=== PATIENT | male | born 1995 | race American Indian/Alaskan Native ===

== ENCOUNTER 2021-04-22 10:36 | Inpatient (IN) | payer SELFPAY ==
[2021-04-22] MEDS ORDERED: SODIUM CHLORIDE 0.9% 1000 ML 1,000 ML IV ONE (11:00)
[2021-04-22 12:04] LABS: Mean Corpuscular HGB Conc 31 % (32-34); Mean Corpuscular Volume 94 fl (84-94); Platelet Count 466 K/mm3 (140-440); Red Cell Distribution Width 14.5 % (13.2-15.2)
[2021-04-22 12:06] LABS: INR 0.93 (0.87-1.13)
[2021-04-22 12:07] LABS: Hematocrit 54.2 % (35.5-45.6); Hemoglobin 16.8 gm/dl (11.8-15.2)
[2021-04-22 12:39] LABS: Alanine Aminotransferase 31 units/L (7-56); Albumin 5.2 g/dL (3.9-5); BUN/Creatinine Ratio 13; Blood Urea Nitrogen 26 mg/dL (9-20); Calcium 10.7 mg/dL (8.4-10.2); Hemolysis Index 14
[2021-04-22] MEDS ORDERED: INSULIN REGULAR, HUMAN 100 UNITS/1 ML IV ONE (13:23)
[2021-04-22] MEDS ORDERED: cefTRIAXone/NS 1 GM/50 ML 1 GM/50 ML BAG IV ONE (13:45)
[2021-04-22] MEDS: POTASSIUM CHLORIDE 10 MEQ 10 MEQ/100 ML BAG IV SCH ×4 (14:05→17:15)
--- NOTE | 2021-04-22 14:22 | Emergency Department Report ---
ED General Adult HPI - General Chief complaint: Hyperglycemia Stated complaint: HYPERGLYCEMIA Time Seen by Provider: 04/22/21 10:45 Source: patient Mode of arrival: Ambulatory Limitations: No Limitations - History of Present Illness Initial comments: /o weakness since this morning. took 10units insulin prior to EMS arrival. Repeat BGL 536. -: Gradual, days(s) Radiation: non-radiation Consistency: intermittent Improves with: none - Related Data Allergies Allergy/AdvReac Type Severity Reaction Status Date / Time No Known Allergies Allergy Verified 04/22/21 11:00 ED Review of Systems ROS: Stated complaint: HYPERGLYCEMIA Other details as noted in HPI Constitutional: denies: chills, fever Eyes: denies: eye pain, eye discharge, vision change ENT: denies: ear pain, throat pain Respiratory: denies: cough, shortness of breath, wheezing Cardiovascular: denies: chest pain, palpitations Endocrine: no symptoms reported Gastrointestinal: denies: abdominal pain, nausea, diarrhea Genitourinary: denies: urgency, dysuria Musculoskeletal: denies: back pain, joint swelling, arthralgia Skin: denies: rash, lesions Neurological: denies: headache, weakness, paresthesias Psychiatric: denies: anxiety, depression Hematological/Lymphatic: denies: easy bleeding, easy bruising ED Past Medical Hx - Past Medical History Previous Medical History?: No ED Physical Exam - General Limitations: No Limitations General appearance: lethargic, in distress - Head Head exam: Present: atraumatic, normocephalic - Eye Eye exam: Present: normal appearance - ENT ENT exam: Present: mucous membranes dry - Neck Neck exam: Present: normal inspection - Respiratory Respiratory exam: Present: normal lung sounds bilaterally. Absent: respiratory distress - Cardiovascular Cardiovascular Exam: Present: regular rate, tachycardia. Absent: systolic murmur, diastolic murmur, rubs, gallop - GI/Abdominal GI/Abdominal exam: Present: soft, normal bowel sounds - Rectal Rectal exam: Present: deferred - Extremities Exam Extremities exam: Present: normal inspection - Back Exam Back exam: Present: normal inspection - Neurological Exam Neurological exam: Present: alert, oriented X3 - Psychiatric Psychiatric exam: Present: normal affect, normal mood - Skin Skin exam: Present: warm, dry, intact, normal color. Absent: rash ED Course Vital Signs 04/22/21 10:58 Temperature 98 F Pulse Rate 81 Respiratory 16 Rate Blood Pressure 140/98 [Left] O2 Sat by Pulse 98 Oximetry - Reevaluation(s) Reevaluation #1: 04/22/21 14:20 DKA work up , acidotic, insulin bolus and drip, fluids given ED Medical Decision Making - Lab Data Result diagrams: 04/22/21 11:26 04/22/21 11:26 Critical Care Time: Yes Critical care time in (mins) excluding proc time.: 65 Critical care attestation.: If time is entered above; I have spent that time in minutes in the direct care of this critically ill patient, excluding procedure time. ED Disposition Clinical Impression: DKA (diabetic ketoacidosis), Acidosis Disposition: ADMITTED INPATIENT Is pt being admited?: Yes Does the pt Need Aspirin: No Condition: Critical Instructions: Diabetic Ketoacidosis (ED) Referrals: PRIMARY CARE, [Primary Care Provider] - 3-5 Days
[2021-04-22 14:28] LABS: Calcium 9.8 mg/dL (8.4-10.2)
[2021-04-22] MEDS: INSULIN REGULAR, HUMAN 100 UNITS in SODIUM CHLORIDE 0.9% 99 ML IV SCH (14:54)
[2021-04-22] MEDS ORDERED: DEXTROSE 50% IN WATER (25GM) 50 ML SYRINGE IV PRN (15:13)
[2021-04-22] MEDS ORDERED: INSULIN REGULAR, HUMAN 100 UNITS in SODIUM CHLORIDE 0.9% 99 ML IV SCH (16:00)
[2021-04-22] MEDS ORDERED: D5W/0.45% NACL/KCL 20 MEQ 20 MEQ/1,000 ML BAG IV SCH (16:00)
[2021-04-22] MEDS ORDERED: ACETAMINOPHEN 325 MG TAB PO PRN (16:00)
[2021-04-22] MEDS ORDERED: ONDANSETRON 4 MG/2 ML INJ IV PRN (16:00)
[2021-04-22] MEDS ORDERED: METOCLOPRAMIDE 10 MG/2 ML INJ IV PRN (16:00)
[2021-04-22] MEDS ORDERED: MORPHINE 2 MG/1 ML INJ IV PRN (16:00)
--- NOTE | 2021-04-22 16:17 | History and Physical Report ---
History of Present Illness Date of examination: 04/22/21 Date of admission: 04/22/21 Chief complaint: Altered sensorium History of present illness: 25-year-old male comes in for severe weakness and high blood glucose levels. Complains of weakness since this morning. Not been taking his insulin properly. Took 10 units of insulin prior to EMS. Blood glucose level by EMS was 536. Patient has also nausea. No vomiting. Altered sensorium. No fever or chills. Patient is on insulin for the last 10 years. Very noncompliant. This is the first admission to this hospital. No previous admissions. Patient lying in bed lethargic. Sometimes agitated. Very dry tongue. Review of Systems ROS: Stated complaint: HYPERGLYCEMIA Other details as noted in HPI Constitutional: denies: chills, fever Eyes: denies: eye pain, eye discharge, vision change ENT: denies: ear pain, throat pain Respiratory: denies: cough, shortness of breath, wheezing Cardiovascular: denies: chest pain, palpitations Endocrine: no symptoms reported Gastrointestinal: denies: abdominal pain, nausea, diarrhea Genitourinary: denies: urgency, dysuria Musculoskeletal: denies: back pain, joint swelling, arthralgia Skin: denies: rash, lesions Neurological: denies: headache, weakness, paresthesias Psychiatric: denies: anxiety, depression Hematological/Lymphatic: denies: easy bleeding, easy bruising Past History Past Medical History: diabetes (IDDM) Past Surgical History: No surgical history Social history: smoking, full code Family history: diabetes, hypertension Medications and Allergies Allergies Allergy/AdvReac Type Severity Reaction Status Date / Time No Known Allergies Allergy Verified 04/22/21 11:00 Active Meds: Active Medications Insulin Human Regular 100 (units/ Sodium Chloride) 100 mls @ 1 mls/hr IV TITR HAMIDA; Protocol Potassium Chloride (Kcl 10meq/100ml) 10 meq in 100 mls @ 100 mls/hr IV Q1H HAMIDA Stop: 04/22/21 17:59 Exam - Constitutional Vitals: Temp Pulse Resp BP Pulse Ox 98 F 81 16 140/98 98 04/22/21 10:58 04/22/21 10:58 04/22/21 10:58 04/22/21 10:58 04/22/21 10:58 General appearance: Present: no acute distress, well-nourished - EENT Eyes: Present: PERRL ENT: hearing intact, clear oral mucosa, other (Mucosal membranes are dry especially tongue) - Neck Neck: Present: supple, normal ROM - Respiratory Respiratory effort: normal Respiratory: bilateral: CTA - Cardiovascular Heart rate: 78 Rhythm: regular Heart Sounds: Present: S1 & S2. Absent: rub, click - Extremities Extremities: pulses symmetrical, No edema Peripheral Pulses: within normal limits - Abdominal General gastrointestinal: Present: soft, non-tender, non-distended, normal bowel sounds Male genitourinary: Present: normal - Integumentary Integumentary: Present: clear, warm, dry - Musculoskeletal Musculoskeletal: strength equal bilaterally, generalized weakness - Psychiatric Psychiatric: agitated, other (Lethargic) - Neurologic Neurologic: CNII-XII intact, moves all extremities, other (Lethargic) - Allied Health Allied health notes reviewed: nursing, case management HEART Score - HEART Score Troponin: Troponin T < 0.010 ng/mL (0.00-0.029) 04/22/21 11:26 Results - Labs CBC & Chem 7: 04/22/21 11:26 04/22/21 Unknown Labs: Laboratory Last Values WBC 26.5 K/mm3 (4.5-11.0) H 04/22/21 11:26 RBC 5.80 M/mm3 (3.65-5.03) H 04/22/21 11:26 Hgb 16.8 gm/dl (11.8-15.2) H 04/22/21 11:26 Hct 54.2 % (35.5-45.6) H 04/22/21 11:26 MCV 94 fl (84-94) 04/22/21 11:26 MCH 29 pg (28-32) 04/22/21 11:26 MCHC 31 % (32-34) L 04/22/21 11:26 RDW 14.5 % (13.2-15.2) 04/22/21 11:26 Plt Count 466 K/mm3 (140-440) H 04/22/21 11:26 PT 13.5 Sec. (12.2-14.9) 04/22/21 11:26 INR 0.93 (0.87-1.13) 04/22/21 11:26 Sodium 132 mmol/L (137-145) L 04/22/21 13:44 Potassium 5.4 mmol/L (3.6-5.0) H 04/22/21 13:44 Chloride 79.7 mmol/L (98-107) L 04/22/21 13:44 Carbon Dioxide 5 mmol/L (22-30) L* 04/22/21 13:44 Anion Gap 53 mmol/L 04/22/21 13:44 BUN 30 mg/dL (9-20) H 04/22/21 13:44 Creatinine 2.0 mg/dL (0.8-1.3) H 04/22/21 13:44 Estimated GFR 49 ml/min 04/22/21 13:44 BUN/Creatinine Ratio 15 % 04/22/21 13:44 Glucose 868 mg/dL (75-100) H* 04/22/21 13:44 Lactic Acid 6.00 mmol/L (0.7-2.0) H* 04/22/21 12:50 Calcium 9.8 mg/dL (8.4-10.2) 04/22/21 13:44 Total Bilirubin 0.40 mg/dL (0.1-1.2) 04/22/21 11:26 AST 40 units/L (5-40) 04/22/21 11:26 ALT 31 units/L (7-56) 04/22/21 11:26 Alkaline Phosphatase 126 units/L (35-129) 04/22/21 11:26 Total Creatine Kinase 117 units/L (55-170) 04/22/21 11:26 Troponin T < 0.010 ng/mL (0.00-0.029) 04/22/21 11:26 Total Protein 9.0 g/dL (6.3-8.2) H 04/22/21 11:26 Albumin 5.2 g/dL (3.9-5) H 04/22/21 11:26 Albumin/Globulin Ratio 1.4 % 04/22/21 11:26 Salicylates < 0.3 mg/dL (2.8-20.0) L 04/22/21 11:26 Acetaminophen 5.0 ug/mL (10.0-30.0) L 04/22/21 11:26 Plasma/Serum Alcohol < 0.01 % (0-0.07) 04/22/21 11:26 Short CBC 04/22/21 Range/Units 11:26 WBC 26.5 H (4.5-11.0) K/mm3 Hgb 16.8 H (11.8-15.2) gm/dl Hct 54.2 H (35.5-45.6) % Plt Count 466 H (140-440) K/mm3 BMP 04/22/21 04/22/21 04/22/21 11:26 13:44 16:15 Sodium 131 L 132 L 136 L Potassium 4.8 5.4 H 4.9 Chloride 79.7 L 79.7 L 89.1 L Carbon Dioxide 7 L* 5 L* 5 L* BUN 26 H 30 H 32 H Creatinine 2.0 H 2.0 H 2.1 H Glucose 768 H* 868 H* 802 H* Calcium 10.7 H 9.8 9.0 04/22/21 04/22/21 04/23/21 23:28 Unknown 06:00 Sodium 144 D 136 L 147 H Potassium 5.0 5.3 H 4.5 Chloride 110.6 H 95.9 L 113.8 H Carbon Dioxide 12 L 9 L* 19 L D BUN 31 H 35 H 25 H Creatinine 1.5 H 2.1 H 1.2 Glucose 310 H 574 H* 186 H Calcium 9.0 9.6 8.9 Cardiac Enzymes 04/22/21 Range/Units 11:26 Total Creatine Kinase 117 (55-170) units/L Troponin T < 0.010 (0.00-0.029) ng/mL Liver Function 04/22/21 Range/Units 11:26 Total Bilirubin 0.40 (0.1-1.2) mg/dL AST 40 (5-40) units/L ALT 31 (7-56) units/L Alkaline Phosphatase 126 (35-129) units/L Albumin 5.2 H (3.9-5) g/dL Urine 04/22/21 Range/Units Unknown Urine Color Yellow (Yellow) Urine pH 5.0 (5.0-7.0) Ur Specific [place] 1.010 (1.003-1.030) Urine Protein 30 mg/dl (Negative) mg/dL Urine Glucose (UA) 500 (Negative) mg/dL Assessment and Plan Assessment and plan: Critical care statement The high probability OF a clinically significant sudden or life-threatening deterioration of the cardiorespiratory system and endocrine system required my f ull and direct attention, intervention and postoperative management. The aggregate critical care time was 40 minutes. The time is in addition to time spent performing reported procedures but includes the followin: Data review and interpretation 2: Patient assessment and monitoring of vital signs 3: Documentation 4:: Medication orders and management Advance Directives: Yes (Full code) VTE prophylaxis?: Chemical Plan of care discussed with patient/family: Yes - Patient Problems (1) Acute metabolic encephalopathy Current Visit: Yes Status: Acute Plan to address problem: Patient is after sensorium secondary to his metabolic abnormalities Also possible sepsis versus demargination Patient started on DKA protocol Patient started on IV Rocephin IV fluids (2) DKA (diabetic ketoacidosis) Current Visit: Yes Status: Acute Qualifiers: Diabetes mellitus type: type 1 Plan to address problem: DKA protocol initiated. IV insulin. IV fluids. IV bicarbonate given. Patient also started on long-acting insulin Diabetes education. (3) Metabolic acidosis Current Visit: Yes Status: Acute Plan to address problem: IV sodium bicarbonate as required (4) Polycythemia due to fall in plasma volume Current Visit: Yes Status: Acute Plan to address problem: IV fluids for now (5) OXANA (acute kidney injury) Current Visit: Yes Status: Acute Plan to address problem: Secondary to vasomotor nephropathy IV fluids for now Nephrology consult if necessary (6) Leukocytosis Current Visit: Yes Status: Acute Plan to address problem: No source of infection identified No urinary tract infection Empiric IV antibiotics High white count possible secondary to demargination (7) Hyponatremia Current Visit: Yes Status: Acute Plan to address problem: Secondary to high blood glucose levels Should correct with correction of blood glucose levels (8) DVT prophylaxis Current Visit: Yes Status: Acute Plan to address problem: On heparin and GI prophylaxis (9) Advance care planning Current Visit: Yes Status: Acute Plan to address problem: Could not be done because of the patient's condition
[2021-04-22 18:12] LABS: Band Neutrophils # (Manual) 1.1 K/mm3; Basophils % (Manual) 0 % (0.0-1.8); Platelet Estimate Consistent w Auto; RBC Morphology Normal; Total Cells Counted 100
[2021-04-22] MEDS ORDERED: LORazepam 2 MG/ML VIAL ONE (18:37)
[2021-04-22] MEDS: LORazepam 2 MG/ML VIAL IV PRN ×2 (18:45→22:04)
[2021-04-22 21:05] LABS: Calcium 9.6 mg/dL (8.4-10.2)
[2021-04-22] MEDS: HEPARIN 5,000 UNIT/1 ML VIAL SUB-Q SCH (22:07)
[2021-04-22 22:11] LABS: Amphetamine Screen,Urine Negative; Benzodiazepines Screen,Urine Negative; Cocaine Screen,Urine Negative; Methadone Screen,Urine Negative; Opiate Screen,Urine Negative
[2021-04-22 22:28] LABS: Bacteria,Urine 1+ /HPF (Negative); Mucus,Urine FEW /HPF
[2021-04-22 22:30] LABS: Color,Urine Yellow (Yellow)
[2021-04-22 22:31] LABS: Bilirubin,Urine Negative (Negative)
[2021-04-22 22:32] LABS: Blood,Urine Small (Negative); Urobilinogen,Urine < 2.0 mg/dL (<2.0)
[2021-04-22 22:38] LABS: Cannabinoid Screen,Urine PRESUMPTIVE POSITIVE
[2021-04-23 00:25] LABS: BUN/Creatinine Ratio 21; Blood Urea Nitrogen 31 mg/dL (9-20); Hemolysis Index 9
[2021-04-23] MEDS: LORazepam 2 MG/ML VIAL IV PRN (02:36)
[2021-04-23] MEDS: D5W/0.45% NACL 1,000 ML IV SCH ×2 (03:35→12:49)
[2021-04-23 06:06] LABS: BUN/Creatinine Ratio 21; Blood Urea Nitrogen 25 mg/dL (9-20); Calcium 8.9 mg/dL (8.4-10.2); Hemolysis Index 11
[2021-04-23] MEDS: INSULIN REGULAR, HUMAN 100 UNITS in SODIUM CHLORIDE 0.9% 99 ML IV SCH (06:31)
[2021-04-23] MEDS ORDERED: INSULIN REGULAR, HUMAN 100 UNITS in SODIUM CHLORIDE 0.9% 99 ML IV SCH (07:00)
[2021-04-23] MEDS ORDERED: INSULIN GLARGINE 100 UNITS/ML SUB-Q SCH ×2 (08:00→22:00)
[2021-04-23] MEDS: cefTRIAXone/NS 2 GM/100 ML 2 GM/100 ML BAG IV SCH ×3 (09:30→11:06)
[2021-04-23] MEDS: HEPARIN 5,000 UNIT/1 ML VIAL SUB-Q SCH (09:42)
--- NOTE | 2021-04-23 09:58 | Electrocardiograph Report ---
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
--- NOTE | 2021-04-23 11:05 | Progress Note ---
Assessment and Plan Assessment and plan: Assessment and Plan: #Diabetic ketoacidosis - A.5, BG 536 on admission, ketonuria - DKA protocol initiated: IV insulin (do not d/c until gap closed) + IVF - IV bicarbonate given. - Accuchekcs q1hr - BMP q4hr - monitor for gap closure, initiate lantus once closed. - CCM consulted on admission #Acute metabolic encephalopathy - likely DKA related - alert but confused - currently in restraints #Metabolic acidosis - 2/2 DKA #Acute kidney injury due to vasomotor nephropathy - Dehydration related - IVF as above # Type 2 Diabetic Mellitus with hyperglycemia - A1c > 17. - treatment as above - will need diabetic education on discharge #SIRS - tachycardic, elevated wbc 26K on admission, elevated LA - likely dka related - need additional volume and correction of DKA - no obvious source of infectious etiology...d/c rocephin #hyponatremia - pseudo #THC use - UDS positive #Advance care planning Disease education conducted, care plan discussed, diagnoses discussed, prognosis discussed, patient is full code, patient acknowledges understanding and agree with care plan, +30 minutes. The high probability of a clinically significant, sudden or life threatening deterioration of the [endo, renal] system(s) required my full and direct attention, intervention and personal management. The aggregate critical care time was [60] minutes. This time is in addition to time spent performing reported procedures but includes the following: [x] Data Review and interpretation [x] Patient assessment and monitoring of vital signs [x] Documentation [x] Medication orders and management History Interval history: confused on my encounter. Hospitalist Physical - Physical exam Narrative exam: Physical Exam: VITAL SIGNS: Reviewed. GENERAL: The patient appears normally developed, Vital signs as documented. confused on encounter. HEAD: No signs of head trauma. EYES: Pupils are equal. Extraocular motions intact. EARS: Hearing grossly intact. MOUTH: Oropharynx is normal. NECK: No adenopathy, no JVD. CHEST: Chest with clear breath sounds bilaterally. No wheezes, rales, or rhonchi. CARDIAC: sinus tachycardia. S1 and S2, without murmurs, gallops, or rubs. VASCULAR: No Edema. Peripheral pulses normal and equal in all extremities. ABDOMEN: Soft, non tender and non distended. No rebound or guarding, and no masses palpated. Bowel Sounds normal. MUSCULOSKELETAL: Good range of motion of all major joints. Extremities without clubbing, cyanosis or edema. NEUROLOGIC EXAM: confused. PSYCHIATRIC: confused SKIN: detail exam as documented in skin assessment - Constitutional Vitals: Temp Pulse Resp BP Pulse Ox 98.2 F 130 H 15 120/77 99 04/23/21 06:44 04/23/21 06:31 04/23/21 06:31 04/23/21 06:31 04/23/21 06:31 General appearance: Present: no acute distress, well-nourished HEART Score - HEART Score Troponin: Troponin T < 0.010 ng/mL (0.00-0.029) 04/22/21 11:26 Results - Labs CBC & Chem 7: 04/22/21 11:26 04/23/21 06:00 Labs: Laboratory Last Values WBC 26.5 K/mm3 (4.5-11.0) H 04/22/21 11:26 RBC 5.80 M/mm3 (3.65-5.03) H 04/22/21 11:26 Hgb 16.8 gm/dl (11.8-15.2) H 04/22/21 11:26 Hct 54.2 % (35.5-45.6) H 04/22/21 11:26 MCV 94 fl (84-94) 04/22/21 11:26 MCH 29 pg (28-32) 04/22/21 11:26 MCHC 31 % (32-34) L 04/22/21 11:26 RDW 14.5 % (13.2-15.2) 04/22/21 11:26 Plt Count 466 K/mm3 (140-440) H 04/22/21 11:26 Add Manual Diff Complete 04/22/21 11:26 Total Counted 100 04/22/21 11:26 Seg Neuts % (Manual) 88.0 % (40.0-70.0) H 04/22/21 11:26 Band Neutrophils % 4.0 % 04/22/21 11:26 Lymphocytes % (Manual) 2.0 % (13.4-35.0) L 04/22/21 11:26 Reactive Lymphs % (Man) 0 % 04/22/21 11:26 Monocytes % (Manual) 5.0 % (0.0-7.3) 04/22/21 11:26 Eosinophils % (Manual) 1.0 % (0.0-4.3) 04/22/21 11:26 Basophils % (Manual) 0 % (0.0-1.8) 04/22/21 11:26 Metamyelocytes % 0 % 04/22/21 11:26 Myelocytes % 0 % 04/22/21 11:26 Promyelocytes % 0 % 04/22/21 11:26 Blast Cells % 0 % 04/22/21 11:26 Nucleated RBC % Not Reportable 04/22/21 11:26 Seg Neutrophils # Man 23.3 K/mm3 (1.8-7.7) H 04/22/21 11:26 Band Neutrophils # 1.1 K/mm3 04/22/21 11:26 Lymphocytes # (Manual) 0.5 K/mm3 (1.2-5.4) L 04/22/21 11:26 Abs React Lymphs (Man) 0.0 K/mm3 04/22/21 11:26 Monocytes # (Manual) 1.3 K/mm3 (0.0-0.8) H 04/22/21 11:26 Eosinophils # (Manual) 0.3 K/mm3 (0.0-0.4) 04/22/21 11:26 Basophils # (Manual) 0.0 K/mm3 (0.0-0.1) 04/22/21 11:26 Metamyelocytes # 0.0 K/mm3 04/22/21 11:26 Myelocytes # 0.0 K/mm3 04/22/21 11:26 Promyelocytes # 0.0 K/mm3 04/22/21 11:26 Blast Cells # 0.0 K/mm3 04/22/21 11:26 WBC Morphology Not Reportable 04/22/21 11:26 Hypersegmented Neuts Not Reportable 04/22/21 11:26 Hyposegmented Neuts Not Reportable 04/22/21 11:26 Hypogranular Neuts Not Reportable 04/22/21 11:26 Smudge Cells Not Reportable 04/22/21 11:26 Toxic Granulation Not Reportable 04/22/21 11:26 Toxic Vacuolation Not Reportable 04/22/21 11:26 Dohle Bodies Not Reportable 04/22/21 11:26 Pelger-Huet Anomaly Not Reportable 04/22/21 11:26 [place] Rods Not Reportable 04/22/21 11:26 Platelet Estimate Consistent w auto 04/22/21 11:26 Clumped Platelets Not Reportable 04/22/21 11:26 Plt Clumps, EDTA Not Reportable 04/22/21 11:26 Large Platelets Not Reportable 04/22/21 11:26 Giant Platelets Not Reportable 04/22/21 11:26 Platelet Satelliting Not Reportable 04/22/21 11:26 Plt Morphology Comment Not Reportable 04/22/21 11:26 RBC Morphology Normal 04/22/21 11:26 Dimorphic RBCs Not Reportable 04/22/21 11:26 Polychromasia Not Reportable 04/22/21 11:26 Hypochromasia Not Reportable 04/22/21 11:26 Poikilocytosis Not Reportable 04/22/21 11:26 Anisocytosis Not Reportable 04/22/21 11:26 Microcytosis Not Reportable 04/22/21 11:26 Macrocytosis Not Reportable 04/22/21 11:26 Spherocytes Not Reportable 04/22/21 11:26 Pappenheimer Bodies Not Reportable 04/22/21 11:26 Sickle Cells Not Reportable 04/22/21 11:26 Target Cells Not Reportable 04/22/21 11:26 Tear Drop Cells Not Reportable 04/22/21 11:26 Ovalocytes Not Reportable 04/22/21 11:26 Helmet Cells Not Reportable 04/22/21 11:26 [place] Bodies Not Reportable 04/22/21 11:26 [place] Rings Not Reportable 04/22/21 11:26 [place] Cells Not Reportable 04/22/21 11:26 Bite Cells Not Reportable 04/22/21 11:26 Crenated Cell Not Reportable 04/22/21 11:26 Elliptocytes Not Reportable 04/22/21 11:26 Acanthocytes (Spur) Not Reportable 04/22/21 11:26 Rouleaux Not Reportable 04/22/21 11:26 Hemoglobin C Crystals Not Reportable 04/22/21 11:26 Schistocytes Not Reportable 04/22/21 11:26 Malaria parasites Not Reportable 04/22/21 11:26 Feroz Bodies Not Reportable 04/22/21 11:26 Hem Pathologist Commnt No 04/22/21 11:26 PT 13.5 Sec. (12.2-14.9) 04/22/21 11:26 INR 0.93 (0.87-1.13) 04/22/21 11:26 Sodium 147 mmol/L (137-145) H 04/23/21 06:00 Potassium 4.5 mmol/L (3.6-5.0) 04/23/21 06:00 Chloride 113.8 mmol/L (98-107) H 04/23/21 06:00 Carbon Dioxide 19 mmol/L (22-30) L D 04/23/21 06:00 Anion Gap 19 mmol/L 04/23/21 06:00 BUN 25 mg/dL (9-20) H 04/23/21 06:00 Creatinine 1.2 mg/dL (0.8-1.3) 04/23/21 06:00 Estimated GFR > 60 ml/min 04/23/21 06:00 BUN/Creatinine Ratio 21 % 04/23/21 06:00 Glucose 186 mg/dL (75-100) H 04/23/21 06:00 POC Glucose 164 mg/dL (70-105) H 04/23/21 10:32 Hemoglobin A1c > 17.0 % (4-6) H 04/23/21 05:23 Lactic Acid 6.40 mmol/L (0.7-2.0) H* 04/22/21 13:52 Calcium 8.9 mg/dL (8.4-10.2) 04/23/21 06:00 Phosphorus 8.80 mg/dL (2.5-4.5) H 04/22/21 16:15 Magnesium 2.70 mg/dL (1.7-2.3) H 04/22/21 16:15 Total Bilirubin 0.40 mg/dL (0.1-1.2) 04/22/21 11:26 AST 40 units/L (5-40) 04/22/21 11:26 ALT 31 units/L (7-56) 04/22/21 11:26 Alkaline Phosphatase 126 units/L (35-129) 04/22/21 11:26 Total Creatine Kinase 117 units/L (55-170) 04/22/21 11:26 Troponin T < 0.010 ng/mL (0.00-0.029) 04/22/21 11:26 Total Protein 9.0 g/dL (6.3-8.2) H 04/22/21 11:26 Albumin 5.2 g/dL (3.9-5) H 04/22/21 11:26 Albumin/Globulin Ratio 1.4 % 04/22/21 11:26 Urine Color Yellow (Yellow) 04/22/21 Unknown Urine Turbidity Clear (Clear) 04/22/21 Unknown Urine pH 5.0 (5.0-7.0) 04/22/21 Unknown Ur Specific [place] 1.010 (1.003-1.030) 04/22/21 Unknown Urine Protein 30 mg/dl mg/dL (Negative) 04/22/21 Unknown Urine Glucose (UA) 500 mg/dL (Negative) 04/22/21 Unknown Urine Ketones 25 mg/dL (Negative) 04/22/21 Unknown Urine Blood Small (Negative) A 04/22/21 Unknown Urine Nitrite Negative (Negative) 04/22/21 Unknown Ur Reducing Substances Not Reportable 04/22/21 Unknown Urine Bilirubin Negative (Negative) 04/22/21 Unknown Urine Ictotest Not Reportable 04/22/21 Unknown Urine Urobilinogen < 2.0 mg/dL (<2.0) 04/22/21 Unknown Ur Leukocyte Esterase Negative (Negative) 04/22/21 Unknown Urine WBC (Auto) 4.0 /HPF (0.0-6.0) 04/22/21 Unknown Urine RBC (Auto) 1.0 /HPF (0.0-6.0) 04/22/21 Unknown U Epithel Cells (Auto) 1.0 /HPF (0-13.0) 04/22/21 Unknown Urine Bacteria (Auto) 1+ /HPF (Negative) 04/22/21 Unknown Urine Mucus Few /HPF 04/22/21 Unknown Salicylates < 0.3 mg/dL (2.8-20.0) L 04/22/21 11:26 Urine Opiates Screen Negative 04/22/21 Unknown Urine Methadone Screen Negative 04/22/21 Unknown Acetaminophen 5.0 ug/mL (10.0-30.0) L 04/22/21 11:26 Ur Barbiturates Screen Negative 04/22/21 Unknown Ur Phencyclidine Scrn Negative 04/22/21 Unknown Ur Amphetamines Screen Negative 04/22/21 Unknown U Benzodiazepines Scrn Negative 04/22/21 Unknown Urine Cocaine Screen Negative 04/22/21 Unknown U Marijuana (THC) Screen Presumptive positive 04/22/21 Unknown Drugs of Abuse Note Disclamer 04/22/21 Unknown Plasma/Serum Alcohol < 0.01 % (0-0.07) 04/22/21 11:26 Active Medications - Current Medications Current Medications: Generic Name Dose Route Start Last Admin Trade Name Freq PRN Reason Stop Dose Admin Acetaminophen 650 mg 04/22/21 16:00 Acetaminophen 325 Mg Tab PO Q4H PRN Pain MILD(1-3)/Fever >100.5/IVAN Dextrose 0 ml 04/22/21 17:22 Dextrose 10% *Hypoglycemia IV PRN PRN Hypoglycemia Heparin Sodium (Porcine) 5,000 unit 04/22/21 22:00 04/23/21 09:42 Heparin 5,000 Unit/1 Ml Vial SUB-Q 5,000 unit Q12HR HAMIDA Administration Dextrose/Sodium Chloride 1,000 mls @ 125 mls/hr 04/23/21 04:00 04/23/21 03:35 D5/0.45ns IV 125 mls/hr DIRECT HAMIDA Administration Ceftriaxone Sodium 2 gm in 100 mls @ 200 mls/hr 04/23/21 06:30 Rocephin/Ns 2 Gm/100 Ml IV Q24HR HAMIDA Protocol Insulin Human Regular 100 100 mls @ 1 mls/hr 04/23/21 07:00 04/23/21 09:11 units/ Sodium Chloride IV 4 units/hr TITR HAMIDA 4 mls/hr Administration Protocol 1 UNITS/HR Lorazepam 1 mg 04/22/21 18:48 04/23/21 02:36 Lorazepam 2 Mg/Ml Vial IV 1 mg Q3H PRN Administration Agitation Metoclopramide HCl 10 mg 04/22/21 16:00 Metoclopramide 10 Mg/2 Ml Inj IV Q6H PRN Nausea And Vomiting Morphine Sulfate 2 mg 04/22/21 16:00 Morphine 2 Mg/1 Ml Inj IV Q4H PRN Pain, Moderate (4-6) Ondansetron HCl 4 mg 04/22/21 16:00 Ondansetron 4 Mg/2 Ml Inj IV Q3H PRN Nausea And Vomiting Sodium Chloride 10 ml 04/22/21 22:00 02/09/22 09:43 Sodium Chloride 0.9% 10 Ml Flush Syringe IV 10 ml BID HAMIDA Administration Sodium Chloride 10 ml 04/22/21 15:30 Sodium Chloride 0.9% 10 Ml Flush Syringe IV 05/02/21 15:29 PRN PRN LINE FLUSH
[2021-04-23 16:11] LABS: BUN/Creatinine Ratio 17; Blood Urea Nitrogen 20 mg/dL (9-20); Calcium 9.2 mg/dL (8.4-10.2); Hemolysis Index 11
[2021-04-23] MEDS ORDERED: DEXTROSE 50% IN WATER (25GM) 50 ML SYRINGE IV PRN (16:52)
[2021-04-23] MEDS: INSULIN LISPRO 100 UNIT/ML SUB-Q SCH (18:10)
[2021-04-23] MEDS ORDERED: INSULIN REGULAR, HUMAN 100 UNITS/1 ML SUB-Q SCH (22:00)
[2021-04-24] MEDS: INSULIN LISPRO 100 UNIT/ML SUB-Q SCH ×3 (01:00→11:57)
[2021-04-24] MEDS: HEPARIN 5,000 UNIT/1 ML VIAL SUB-Q SCH ×3 (01:23→22:13)
[2021-04-24 02:12] LABS: BUN/Creatinine Ratio 18; Blood Urea Nitrogen 16 mg/dL (9-20); Calcium 9.5 mg/dL (8.4-10.2); Hemolysis Index 7
[2021-04-24 06:39] LABS: Basophils % (Auto) 0.3 % (0.0-1.8); Hematocrit 43.9 % (35.5-45.6); Hemoglobin 14.3 gm/dl (11.8-15.2); Lymphocytes # (Auto) 1.6 K/mm3 (1.2-5.4); Lymphocytes % (Auto) 10.7 % (13.4-35.0); Mean Corpuscular HGB Conc 33 % (32-34); Mean Corpuscular Volume 87 fl (84-94); Monocytes # (Auto) 1.1 K/mm3 (0.0-0.8); Monocytes % (Auto) 7.5 % (0.0-7.3); Platelet Count 300 K/mm3 (140-440); Red Blood Count 5.04 M/mm3 (3.65-5.03); Red Cell Distribution Width 14.4 % (13.2-15.2)
[2021-04-24 06:46] LABS: BUN/Creatinine Ratio 18; Blood Urea Nitrogen 16 mg/dL (9-20); Hemolysis Index 82
[2021-04-24] MEDS: DEXTROSE 10% *Hypoglycemia IV PRN ×2 (07:02→07:28)
[2021-04-24] MEDS ORDERED: DEXTROSE 50% IN WATER (25GM) 50 ML SYRINGE IV PRN (16:02)
[2021-04-24] MEDS ORDERED: DEXTROSE 10% *Hypoglycemia IV PRN (16:10)
--- NOTE | 2021-04-24 16:12 | Progress Note ---
Assessment and Plan Assessment and plan: #Diabetic ketoacidosisresolved #Insulin dependent type II diabetes mellitus - A.5, BG 536 on admission, ketonuria - DKA protocol initiated: IV insulin (do not d/c until gap closed) + IVF - IV bicarbonate given. - hemoglobin A1c: >17 - home regimen: Lantus 10 units - current regimen: NPH 10 units nightly + Metformin 1000 mg twice daily + moderate SSI - blood glucose goal 140-180 while inpatient Providing diabetic education prior to discharge - continue to monitor #Acute metabolic encephalopathyresolved #Anion gap metabolic acidosisresolved #Pseudohyponatremiaresolved - likely DKA related - alert but confused - currently in restraints #Acute kidney injury due to vasomotor nephropathyresolved - Dehydration related - IVF as above #Polysubstance dependence -Patient engages in the following substances: THC (seen on UDS) -Counseled patient about the importance of cessation of substance abuse. Offered resources to help with quitting. Patient expresses understanding. -Time: +10 mins #Advanced care planning -Disease education conducted, care plan discussed, diagnoses discussed, prognosis discussed, and patient acknowledges understanding with care plan -Time: +30 min #Discharge planning - Patient is pending hyperglycemia control - Case management has been made aware. - Discharge is tentatively 24-48 hours Disposition Plan: Continue medical management Total Time Spent with Patient (Minutes): 45 minutes History Interval history: No acute events overnight. Hospitalist Physical - Constitutional Vitals: Temp Pulse Resp BP Pulse Ox 97.5 F L 87 16 102/65 100 04/24/21 11:32 04/24/21 11:32 04/24/21 11:32 04/24/21 11:32 04/24/21 11:32 General appearance: Present: no acute distress, well-nourished - EENT Eyes: Present: PERRL, EOM intact ENT: hearing intact, clear oral mucosa, dentition normal - Neck Neck: Present: supple, normal ROM - Respiratory Respiratory effort: normal Respiratory: bilateral: CTA - Cardiovascular Rhythm: regular Heart Sounds: Present: S1 & S2 - Extremities Extremities: no ischemia, pulses intact, pulses symmetrical, No edema, normal temperature, normal color, Full ROM Peripheral Pulses: within normal limits - Abdominal General gastrointestinal: soft, non-tender, non-distended, normal bowel sounds - Integumentary Integumentary: Present: clear, warm, dry - Psychiatric Psychiatric: appropriate mood/affect, intact judgment & insight, memory intact, cooperative - Neurologic Neurologic: CNII-XII intact, moves all extremities - Allied Health Allied health notes reviewed: nursing HEART Score - HEART Score Troponin: Troponin T < 0.010 ng/mL (0.00-0.029) 04/22/21 11:26 Results - Labs CBC & Chem 7: 04/24/21 05:03 04/24/21 05:03 Labs: Laboratory Last Values WBC 15.0 K/mm3 (4.5-11.0) H 04/24/21 05:03 RBC 5.04 M/mm3 (3.65-5.03) H 04/24/21 05:03 Hgb 14.3 gm/dl (11.8-15.2) 04/24/21 05:03 Hct 43.9 % (35.5-45.6) D 04/24/21 05:03 MCV 87 fl (84-94) 04/24/21 05:03 MCH 28 pg (28-32) 04/24/21 05:03 MCHC 33 % (32-34) 04/24/21 05:03 RDW 14.4 % (13.2-15.2) 04/24/21 05:03 Plt Count 300 K/mm3 (140-440) 04/24/21 05:03 Lymph % (Auto) 10.7 % (13.4-35.0) L 04/24/21 05:03 [place] % (Auto) 7.5 % (0.0-7.3) H 04/24/21 05:03 Eos % (Auto) 0.0 % (0.0-4.3) 04/24/21 05:03 Baso % (Auto) 0.3 % (0.0-1.8) 04/24/21 05:03 Lymph # (Auto) 1.6 K/mm3 (1.2-5.4) 04/24/21 05:03 [place] # (Auto) 1.1 K/mm3 (0.0-0.8) H 04/24/21 05:03 Eos # (Auto) 0.0 K/mm3 (0.0-0.4) 04/24/21 05:03 Baso # (Auto) 0.0 K/mm3 (0.0-0.1) 04/24/21 05:03 Add Manual Diff Complete 04/22/21 11:26 Total Counted 100 04/22/21 11:26 Seg Neutrophils % 81.5 % (40.0-70.0) H 04/24/21 05:03 Seg Neuts % (Manual) 88.0 % (40.0-70.0) H 04/22/21 11:26 Band Neutrophils % 4.0 % 04/22/21 11:26 Lymphocytes % (Manual) 2.0 % (13.4-35.0) L 04/22/21 11:26 Reactive Lymphs % (Man) 0 % 04/22/21 11:26 Monocytes % (Manual) 5.0 % (0.0-7.3) 04/22/21 11:26 Eosinophils % (Manual) 1.0 % (0.0-4.3) 04/22/21 11:26 Basophils % (Manual) 0 % (0.0-1.8) 04/22/21 11:26 Metamyelocytes % 0 % 04/22/21 11:26 Myelocytes % 0 % 04/22/21 11:26 Promyelocytes % 0 % 04/22/21 11:26 Blast Cells % 0 % 04/22/21 11:26 Nucleated RBC % Not Reportable 04/22/21 11:26 Seg Neutrophils # 12.3 K/mm3 (1.8-7.7) H 04/24/21 05:03 Seg Neutrophils # Man 23.3 K/mm3 (1.8-7.7) H 04/22/21 11:26 Band Neutrophils # 1.1 K/mm3 04/22/21 11:26 Lymphocytes # (Manual) 0.5 K/mm3 (1.2-5.4) L 04/22/21 11:26 Abs React Lymphs (Man) 0.0 K/mm3 04/22/21 11:26 Monocytes # (Manual) 1.3 K/mm3 (0.0-0.8) H 04/22/21 11:26 Eosinophils # (Manual) 0.3 K/mm3 (0.0-0.4) 04/22/21 11:26 Basophils # (Manual) 0.0 K/mm3 (0.0-0.1) 04/22/21 11:26 Metamyelocytes # 0.0 K/mm3 04/22/21 11:26 Myelocytes # 0.0 K/mm3 04/22/21 11:26 Promyelocytes # 0.0 K/mm3 04/22/21 11:26 Blast Cells # 0.0 K/mm3 04/22/21 11:26 WBC Morphology Not Reportable 04/22/21 11:26 Hypersegmented Neuts Not Reportable 04/22/21 11:26 Hyposegmented Neuts Not Reportable 04/22/21 11:26 Hypogranular Neuts Not Reportable 04/22/21 11:26 Smudge Cells Not Reportable 04/22/21 11:26 Toxic Granulation Not Reportable 04/22/21 11:26 Toxic Vacuolation Not Reportable 04/22/21 11:26 Dohle Bodies Not Reportable 04/22/21 11:26 Pelger-Huet Anomaly Not Reportable 04/22/21 11:26 [place] Rods Not Reportable 04/22/21 11:26 Platelet Estimate Consistent w auto 04/22/21 11:26 Clumped Platelets Not Reportable 04/22/21 11:26 Plt Clumps, EDTA Not Reportable 04/22/21 11:26 Large Platelets Not Reportable 04/22/21 11:26 Giant Platelets Not Reportable 04/22/21 11:26 Platelet Satelliting Not Reportable 04/22/21 11:26 Plt Morphology Comment Not Reportable 04/22/21 11:26 RBC Morphology Normal 04/22/21 11:26 Dimorphic RBCs Not Reportable 04/22/21 11:26 Polychromasia Not Reportable 04/22/21 11:26 Hypochromasia Not Reportable 04/22/21 11:26 Poikilocytosis Not Reportable 04/22/21 11:26 Anisocytosis Not Reportable 04/22/21 11:26 Microcytosis Not Reportable 04/22/21 11:26 Macrocytosis Not Reportable 04/22/21 11:26 Spherocytes Not Reportable 04/22/21 11:26 Pappenheimer Bodies Not Reportable 04/22/21 11:26 Sickle Cells Not Reportable 04/22/21 11:26 Target Cells Not Reportable 04/22/21 11:26 Tear Drop Cells Not Reportable 04/22/21 11:26 Ovalocytes Not Reportable 04/22/21 11:26 Helmet Cells Not Reportable 04/22/21 11:26 [place] Bodies Not Reportable 04/22/21 11:26 Jamul Rings Not Reportable 04/22/21 11:26 [place] Cells Not Reportable 04/22/21 11:26 Bite Cells Not Reportable 04/22/21 11:26 Crenated Cell Not Reportable 04/22/21 11:26 Elliptocytes Not Reportable 04/22/21 11:26 Acanthocytes (Spur) Not Reportable 04/22/21 11:26 Rouleaux Not Reportable 04/22/21 11:26 Hemoglobin C Crystals Not Reportable 04/22/21 11:26 Schistocytes Not Reportable 04/22/21 11:26 Malaria parasites Not Reportable 04/22/21 11:26 Feroz Bodies Not Reportable 04/22/21 11:26 Hem Pathologist Commnt No 04/22/21 11:26 PT 13.5 Sec. (12.2-14.9) 04/22/21 11:26 INR 0.93 (0.87-1.13) 04/22/21 11:26 Sodium 141 mmol/L (137-145) 04/24/21 05:03 Potassium 3.8 mmol/L (3.6-5.0) 04/24/21 05:03 Chloride 105.3 mmol/L (98-107) 04/24/21 05:03 Carbon Dioxide 18 mmol/L (22-30) L 04/24/21 05:03 Anion Gap 22 mmol/L 04/24/21 05:03 BUN 16 mg/dL (9-20) 04/24/21 05:03 Creatinine 0.9 mg/dL (0.8-1.3) 04/24/21 05:03 Estimated GFR > 60 ml/min 04/24/21 05:03 BUN/Creatinine Ratio 18 % 04/24/21 05:03 Glucose 23 mg/dL (75-100) L* 04/24/21 05:03 POC Glucose 219 mg/dL (70-105) H 04/24/21 15:52 Hemoglobin A1c > 17.0 % (4-6) H 04/23/21 05:23 Lactic Acid 6.40 mmol/L (0.7-2.0) H* 04/22/21 13:52 Calcium 9.0 mg/dL (8.4-10.2) 04/24/21 05:03 Phosphorus 8.80 mg/dL (2.5-4.5) H 04/22/21 16:15 Magnesium 2.70 mg/dL (1.7-2.3) H 04/22/21 16:15 Total Bilirubin 0.40 mg/dL (0.1-1.2) 04/22/21 11:26 AST 40 units/L (5-40) 04/22/21 11:26 ALT 31 units/L (7-56) 04/22/21 11:26 Alkaline Phosphatase 126 units/L (35-129) 04/22/21 11:26 Total Creatine Kinase 117 units/L (55-170) 04/22/21 11:26 Troponin T < 0.010 ng/mL (0.00-0.029) 04/22/21 11:26 Total Protein 9.0 g/dL (6.3-8.2) H 04/22/21 11:26 Albumin 5.2 g/dL (3.9-5) H 04/22/21 11:26 Albumin/Globulin Ratio 1.4 % 04/22/21 11:26 Urine Color Yellow (Yellow) 04/22/21 Unknown Urine Turbidity Clear (Clear) 04/22/21 Unknown Urine pH 5.0 (5.0-7.0) 04/22/21 Unknown Ur Specific [place] 1.010 (1.003-1.030) 04/22/21 Unknown Urine Protein 30 mg/dl mg/dL (Negative) 04/22/21 Unknown Urine Glucose (UA) 500 mg/dL (Negative) 04/22/21 Unknown Urine Ketones 25 mg/dL (Negative) 04/22/21 Unknown Urine Blood Small (Negative) A 04/22/21 Unknown Urine Nitrite Negative (Negative) 04/22/21 Unknown Ur Reducing Substances Not Reportable 04/22/21 Unknown Urine Bilirubin Negative (Negative) 04/22/21 Unknown Urine Ictotest Not Reportable 04/22/21 Unknown Urine Urobilinogen < 2.0 mg/dL (<2.0) 04/22/21 Unknown Ur Leukocyte Esterase Negative (Negative) 04/22/21 Unknown Urine WBC (Auto) 4.0 /HPF (0.0-6.0) 04/22/21 Unknown Urine RBC (Auto) 1.0 /HPF (0.0-6.0) 04/22/21 Unknown U Epithel Cells (Auto) 1.0 /HPF (0-13.0) 04/22/21 Unknown Urine Bacteria (Auto) 1+ /HPF (Negative) 04/22/21 Unknown Urine Mucus Few /HPF 04/22/21 Unknown Salicylates < 0.3 mg/dL (2.8-20.0) L 04/22/21 11:26 Urine Opiates Screen Negative 04/22/21 Unknown Urine Methadone Screen Negative 04/22/21 Unknown Acetaminophen 5.0 ug/mL (10.0-30.0) L 04/22/21 11:26 Ur Barbiturates Screen Negative 04/22/21 Unknown Ur Phencyclidine Scrn Negative 04/22/21 Unknown Ur Amphetamines Screen Negative 04/22/21 Unknown U Benzodiazepines Scrn Negative 04/22/21 Unknown Urine Cocaine Screen Negative 04/22/21 Unknown U Marijuana (THC) Screen Presumptive positive 04/22/21 Unknown Drugs of Abuse Note Disclamer 04/22/21 Unknown Plasma/Serum Alcohol < 0.01 % (0-0.07) 04/22/21 11:26 Active Medications - Current Medications Current Medications: Generic Name Dose Route Start Last Admin Trade Name Freq PRN Reason Stop Dose Admin Acetaminophen 650 mg 04/22/21 16:00 Acetaminophen 325 Mg Tab PO Q4H PRN Pain MILD(1-3)/Fever >100.5/IVAN Dextrose 0 ml 04/22/21 17:22 04/24/21 07:28 Dextrose 10% *Hypoglycemia IV 250 ml PRN PRN Administration Hypoglycemia Dextrose 50 ml 04/24/21 16:02 Dextrose 50% In Water (25gm) 50 Ml Syringe IV Q30MIN PRN Hypoglycemia Protocol Heparin Sodium (Porcine) 5,000 unit 04/22/21 22:00 04/24/21 09:58 Heparin 5,000 Unit/1 Ml Vial SUB-Q Not Given Q12HR [facility] Insulin Human Isoph/Insulin Regular 10 unit 04/24/21 17:00 Insulin Nph/Regular 70/30 Inj SUB-Q QPMDIAB [facility] Insulin Human Regular 0 units 04/24/21 16:30 Insulin Regular, Human 100 Units/1 Ml SUB-Q ACHS [facility] Protocol Lorazepam 1 mg 04/22/21 18:48 04/23/21 02:36 Lorazepam 2 Mg/Ml Vial IV 1 mg Q3H PRN Administration Agitation Metformin HCl 1,000 mg 04/24/21 17:00 Metformin 500 Mg Tab PO BIDDIAB HAMIDA Metoclopramide HCl 10 mg 04/22/21 16:00 Metoclopramide 10 Mg/2 Ml Inj IV Q6H PRN Nausea And Vomiting Morphine Sulfate 2 mg 04/22/21 16:00 Morphine 2 Mg/1 Ml Inj IV Q4H PRN Pain, Moderate (4-6) Ondansetron HCl 4 mg 04/22/21 16:00 Ondansetron 4 Mg/2 Ml Inj IV Q3H PRN Nausea And Vomiting Sodium Chloride 10 ml 04/22/21 22:00 04/24/21 09:59 Sodium Chloride 0.9% 10 Ml Flush Syringe IV 10 ml BID HAMIDA Administration Sodium Chloride 10 ml 04/22/21 15:30 Sodium Chloride 0.9% 10 Ml Flush Syringe IV 05/02/21 15:29 PRN PRN LINE FLUSH Nutrition/Malnutrition Assess - Dietary Evaluation Nutrition/Malnutrition Findings: Nutrition Notes Start: 04/23/21 15:18 Freq: Status: Active Protocol: Document 04/23/21 15:18 ELVIE (Rec: 04/23/21 15:25 ELVIE [id number]) Nutrition Notes Need for Assessment generated from: MD Order,Education Initial or Follow up Brief Note Current Diagnosis Acute Kidney Injury,Diabetes Other Pertinent Diagnosis Metabolic Encephalopathy & Acidosis, DKA, SIRS, Hyponatremia. Current Diet NPO (since 04/22 15:09). Height 5 ft 7 in Weight 55.338 kg [place] Body Weight (kg) 67.27 BMI 19.1 Weight change and time frame None reported at admission. Weight Status Appropriate Subjective/Other Information RD consult for Nutrition Education. Pt still on critical condition , not a candidate for Nutrition Education at the time, will assess feasibility on F/U. No reports available on Pt's PO intake of meals at the time , Pt currently on NPO. Percent of energy/protein needs met: Pt currently on NPO. Nutrition Intervention Follow-Up By: 04/25/21 Additional Comments Nutrition education will be provided on F/U, if feasible. When pertinent, monitor food tolerance, %PO intake of meals , and BM.
[2021-04-24] MEDS ORDERED: INSULIN NPH/REGULAR 70/30 INJ SUB-Q SCH (17:00)
[2021-04-24] MEDS: metFORMIN 500 MG TAB PO SCH (17:05)
[2021-04-24] MEDS: INSULIN REGULAR, HUMAN 100 UNITS/1 ML SUB-Q SCH ×2 (17:06→22:17)
[2021-04-25 06:49] LABS: BUN/Creatinine Ratio 14; Blood Urea Nitrogen 14 mg/dL (9-20); Calcium 8.4 mg/dL (8.4-10.2); Hemolysis Index 8
[2021-04-25] MEDS: INSULIN REGULAR, HUMAN 100 UNITS/1 ML SUB-Q SCH ×2 (09:32→11:56)
[2021-04-25] MEDS: metFORMIN 500 MG TAB PO SCH (09:32)
[2021-04-25] MEDS: HEPARIN 5,000 UNIT/1 ML VIAL SUB-Q SCH (09:33)
[2021-04-25] MEDS: INSULIN NPH/REGULAR 70/30 INJ SUB-Q SCH ×2 (09:37→11:55)
--- NOTE | 2021-04-25 11:05 | Discharge Summary ---
Providers - Providers Date of Admission: 04/22/21 15:08 Date of discharge: 04/25/21 Attending physician: GUILLERMO TSAI MD 04/22/21 15:13 Consult to Dietitian/Nutrition [CONS] Routine Physician Instructions: Instructions regarding diabetic diet Reason For Exam: DKA Reason for Consult: Nutrition Recommendations Reason for Consult: Diet education Primary care physician: COMMERCIAL TELLER Hospitalization Reason for admission: Diabetic ketoacidosis Condition: Critical Pertinent studies: Reviewed. Procedures: None. Hospital course: Patient is a 25-year-old male with past medical history of type 1 diabetes mellitus who presented with severe weakness, confusion, and lethargy who was found to be in DKA on presentation. Patient's blood sugar was 536 upon EMS transport. Patient describes currently being in the process of moving and being unable to take his long-acting insulin. The patient was found to have an anion gap of 46.5 and ketonuria. A hemoglobin A1c was >17. Patient was initiated on DKA protocol with an IV insulin drip and aggressive fluid resuscitation. The patient also received IV bicarbonate. He was transferred to the ICU for further management. When his anion gap closed, the patient was transferred to the floor. The patient had episodes of hypoglycemia and insulin was discontinued for approximately 18 hours. Patient was reinitiated on NPH 70-30 10 units twice daily with much better glycemic control. The patient has received diabetic education, and he acknowledges the importance of medication compliance. The patient is medically cleared for discharge. Disposition: 01 HOME / SELF CARE / HOMELESS Final Discharge Diagnosis (Prints w/discharge instructions): Diabetic ketoacidosis, type 1 diabetes mellitus, acute metabolic encephalopathy, acute anion gap acidosis, pseudohyponatremia, OXANA secondary to vasomotor nephropathy, polysubstance abuse Time spent for discharge: 45 min Core Measure Documentation - Palliative Care Palliative Care/ Comfort Measures: Not Applicable - Core Measures Any of the following diagnoses?: none Exam - Constitutional Vitals: Temp Pulse Resp BP Pulse Ox 97.8 F 62 16 106/67 100 04/25/21 08:20 04/25/21 08:20 04/25/21 08:20 04/25/21 08:20 04/25/21 08:20 General appearance: Present: no acute distress, well-nourished - EENT Eyes: Present: PERRL, EOM intact ENT: hearing intact, clear oral mucosa, dentition normal - Neck Neck: Present: supple, normal ROM - Respiratory Respiratory effort: normal Respiratory: bilateral: CTA - Cardiovascular Rhythm: regular Heart Sounds: Present: S1 & S2 - Extremities Extremities: no ischemia, pulses intact, pulses symmetrical, No edema, normal temperature, normal color, Full ROM Peripheral Pulses: within normal limits - Abdominal General gastrointestinal: Present: soft, non-tender, non-distended, normal bowel sounds Male genitourinary: Present: deferred - Rectal Rectal Exam: deferred - Integumentary Integumentary: Present: clear, warm, dry - Musculoskeletal Musculoskeletal: strength equal bilaterally - Psychiatric Psychiatric: appropriate mood/affect, intact judgment & insight, memory intact, cooperative - Neurologic Neurologic: CNII-XII intact, moves all extremities - Allied Health Allied health notes reviewed: nursing Plan Activity: no restrictions Diet: diabetic Special Instructions: record blood sugar diary Additional Instructions: Patient is a 25-year-old male with past medical history of type 1 diabetes mellitus who presented with severe weakness, confusion, and lethargy who was found to be in DKA on presentation. Patient's blood sugar was 536 upon EMS transport. Patient describes currently being in the process of moving and being unable to take his long-acting insulin. The patient was found to have an anion gap of 46.5 and ketonuria. A hemoglobin A1c was >17. Patient was initiated on DKA protocol with an IV insulin drip and aggressive fluid resuscitation. The patient also received IV bicarbonate. He was transferred to the ICU for further management. When his anion gap closed, the patient was transferred to the floor. The patient had episodes of hypoglycemia and insulin was discontinued for approximately 18 hours. Patient was reinitiated on NPH 70- 30 10 units twice daily with much better glycemic control. The patient has received diabetic education, and he acknowledges the importance of medication compliance. The patient is medically cleared for discharge. Care Plan Goals: Patient is medically cleared for discharge. Assessment: Patient is a 25-year-old male with past medical history of type 1 diabetes mellitus who presented with severe weakness, confusion, and lethargy who was found to be in DKA on presentation. Patient's blood sugar was 536 upon EMS transport. Patient describes currently being in the process of moving and being unable to take his long-acting insulin. The patient was found to have an anion gap of 46.5 and ketonuria. A hemoglobin A1c was >17. Patient was initiated on DKA protocol with an IV insulin drip and aggressive fluid resuscitation. The patient also received IV bicarbonate. He was transferred to the ICU for further management. When his anion gap closed, the patient was transferred to the floor. The patient had episodes of hypoglycemia and insulin was discontinued for approximately 18 hours. Patient was reinitiated on NPH 70-30 10 units twice daily with much better glycemic control. The patient has received diabetic education, and he acknowledges the importance of medication compliance. The patient is medically cleared for discharge. Follow up with: PRIMARY CAREMD [Primary Care Provider] - 3-5 Days KASEY CORDON MD [Staff Physician] - 7 Days (Establishing PCP care- s/p discharge for DKA) Forms: Work/School Release Form Prescriptions: Insulin NPH/Regular [NovoLIN 70/30] 10 unit SUB-Q BIDDIAB #2 vial
[2021-04-25 12:55] VITALS: BP 104/60
== END 2021-04-25 13:15 | disposition home or self-care (01) | DRG 637 ==
LOC: ED 10:36 → CC1 15:08 → 4A 04-23 17:16
PROVIDERS: ADMIT Internal Medicine; ATTEND Student in an Organized Health Care Education/Training Program
DX: E10.10 Type 1 diabetes mellitus with ketoacidosis without coma (principal); N17.0 Acute kidney failure with tubular necrosis; G93.41 Metabolic encephalopathy; E87.1 Hypo-osmolality and hyponatremia; D75.1 Secondary polycythemia
CPT/HCPCS: 36415; 80048; 80053; 80307; 80320; 81001; 82140; 82550; 82962; 83036; 83735; 84100; 84484; 85025; 85610; 93005; 93010; G0378; J3490; J7070; Q0162; Q0177; Q9967; G0480; J0696; J1644; J1815; J2060; J3480; J7030

== ENCOUNTER 2021-06-13 10:16 | Inpatient (IN) | payer SELFPAY ==
[2021-06-13] MEDS ORDERED: SODIUM CHLORIDE 0.9% 1000 ML 1,000 ML IV ONE ×3 (11:00→12:15)
[2021-06-13] MEDS ORDERED: DEXTROSE 50% IN WATER (25GM) 50 ML SYRINGE IV PRN (11:00)
--- NOTE | 2021-06-13 11:03 | Emergency Department Report ---
ED General Adult HPI - General Chief complaint: Hyperglycemia Stated complaint: WEAKNESS,HYPERGLYCEMIA Time Seen by Provider: 06/13/21 10:53 Source: patient, EMS (EMS written documentation reviewed and appreciated), RN notes reviewed, old records reviewed Mode of arrival: Stretcher Limitations: Physical Limitation - History of Present Illness Initial comments: This patient is a 25-year-old gentleman, with a known history of type 1 diabetes, recent hemoglobin A1c greater than 17%, resenting to the ER today with a complaint of weakness, shortness of breath, and increased thirst. He denies physical pain. -: days(s) Severity scale (0 -10): 0 Consistency: constant Improves with: rest Worsens with: movement - Related Data Previous Rx's Medication Instructions Recorded Last Taken Type Insulin NPH/Regular [NovoLIN 70/30] 10 unit SUB-Q BIDDIAB #2 vial 04/25/21 Unknown Rx Allergies Allergy/AdvReac Type Severity Reaction Status Date / Time No Known Allergies Allergy Verified 06/13/21 11:08 ED Review of Systems ROS: Stated complaint: WEAKNESS,HYPERGLYCEMIA Other details as noted in HPI Constitutional: malaise. denies: fever Eyes: denies: eye discharge ENT: denies: epistaxis Respiratory: shortness of breath Cardiovascular: denies: chest pain Gastrointestinal: denies: abdominal pain Genitourinary: frequency Neurological: weakness ED Past Medical Hx - Past Medical History Previous Medical History?: Yes Hx Diabetes: Yes - Surgical History Past Surgical History?: No - Social History Smoking Status: Unknown if ever smoked Substance Use Type: None - Medications Home Medications: Home Medications Medication Instructions Recorded Confirmed Last Taken Type Insulin NPH/Regular [NovoLIN 70/30] 10 unit SUB-Q BIDDIAB #2 vial 04/25/21 Unknown Rx ED Physical Exam - General Limitations: Physical Limitation General appearance: alert, anxious, in distress - Head Head exam: Present: atraumatic, normocephalic - Eye Eye exam: Present: normal appearance, EOMI. Absent: nystagmus - ENT ENT exam: Present: normal orophraynx, mucous membranes dry, normal external ear exam - Neck Neck exam: Present: normal inspection, full ROM. Absent: tenderness, meningismus - Respiratory Respiratory exam: Present: respiratory distress, other (Tachypnea noted. kussmaul breathing noted). Absent: wheezes, rales, rhonchi, stridor - Cardiovascular Cardiovascular Exam: Present: normal rhythm, tachycardia, normal heart sounds. Absent: regular rate, bradycardia, irregular rhythm, systolic murmur, diastolic murmur, rubs, gallop - GI/Abdominal GI/Abdominal exam: Present: soft. Absent: distended, tenderness, rebound, rigid, pulsatile mass - Rectal Rectal exam: Present: deferred - Extremities Exam Extremities exam: Present: normal inspection, full ROM, other (2+ pulses noted in the bilateral upper and lower extremities. There is no palpable cord. negative Homans sign. Muscular compartments are soft. The pelvis is stable.). Absent: pedal edema, calf tenderness - Back Exam Back exam: Present: normal inspection. Absent: tenderness, CVA tenderness (R), CVA tenderness (L), paraspinal tenderness, vertebral tenderness - Neurological Exam Neurological exam: Present: alert, other (No facial droop. Tongue midline. Extraocular movements intact bilaterally. Facial sensation intact to light touch in V1, V2, V3 distribution bilaterally. 5 and a 5 strength in 4 extremities. Sensation intact to light touch in 4 extremities.) - Psychiatric Psychiatric exam: Present: anxious - Skin Skin exam: Present: warm, dry, intact, normal color. Absent: rash ED Course Vital Signs 06/13/21 06/13/21 10:28 10:54 Temperature 97.1 F L Pulse Rate 140 H Respiratory 16 Rate Blood Pressure 155/114 [Left] O2 Sat by Pulse 98 100 Oximetry - Reevaluation(s) Reevaluation #1: 06/13/21 12:03 Differential diagnosis, including but not limited to: Pneumonia, urinary tract infection, noncompliance, diabetic ketoacidosis, dehydration Assessment and plan: 25-year-old gentleman with polydips here, dry mucous membranes, tachypnea, weakness, kussmaul breathing pattern, likely presenting with decompensated diabetic ketoacidosis, likely secondary to diet and lifestyle indiscretions, as well as probable noncompliance. Place patient on hall monitor. Obtain appropriate laboratory studies. Rectal temperature 94 degrees, start active patient rewarming. Suspect environmental hypothermia. Tachycardia improving. He is not encephalopathic. He denies physical pain. Chest x-ray clear. Urinalysis pending. Start patient on DKA protocol once laboratory studies have resulted. Have recommended admission to the medical service. Discussed this with the patient. He is agreeable to this plan of care. We will discussed with hospital physician and critical care once laboratory studies have resulted 06/13/21 12:14 pH of 6.98 appreciated. Hospital physician, Dr. Del Valle to admit patient to the medical service. We have reached out to critical care, we are awaiting callback. 06/13/21 12:30 Suspect that leukocytosis is a stress reaction. Critical care physician, Dr. Guerra will follow in consultation ED Medical Decision Making - Lab Data Result diagrams: 06/13/21 11:38 06/13/21 11:38 Vital Signs 06/13/21 06/13/21 10:28 10:54 Temperature 97.1 F L Pulse Rate 140 H Respiratory 16 Rate Blood Pressure 155/114 [Left] O2 Sat by Pulse 98 100 Oximetry Lab Results 06/13/21 Range/Units 11:38 VBG pH 6.968 L* (7.320-7.420) Lab Results 06/13/21 06/13/21 06/13/21 Range/Units 11:38 11:38 11:38 WBC 21.1 H (4.5-11.0) K/mm3 RBC 5.32 H (3.65-5.03) M/mm3 Hgb 15.7 H (11.8-15.2) gm/dl Hct 51.1 H (35.5-45.6) % MCV 96 H (84-94) fl MCH 30 (28-32) pg MCHC 31 L (32-34) % RDW 15.9 H (13.2-15.2) % Plt Count 322 (140-440) K/mm3 Lymph % (Auto) Territory Manager [place] % (Auto) Territory Manager Eos % (Auto) Territory Manager Baso % (Auto) Territory Manager Lymph # (Auto) Territory Manager [place] # (Auto) Territory Manager Eos # (Auto) Territory Manager Baso # (Auto) Territory Manager Seg Neutrophils % Territory Manager Seg Neutrophils # Territory Manager VBG pH 6.968 L* (7.320-7.420) Sodium 133 L (137-145) mmol/L Potassium 4.3 (3.6-5.0) mmol/L Chloride 97.8 L (98-107) mmol/L Carbon Dioxide 4 L* (22-30) mmol/L Anion Gap 36 mmol/L BUN 17 (9-20) mg/dL Creatinine 1.3 (0.8-1.3) mg/dL Estimated GFR > 60 ml/min BUN/Creatinine Ratio 13 % Glucose 521 H* (75-100) mg/dL Calcium 9.3 (8.4-10.2) mg/dL Total Bilirubin 0.40 (0.1-1.2) mg/dL AST 23 (5-40) units/L ALT 14 (7-56) units/L Alkaline Phosphatase 77 (35-129) units/L Total Protein 7.0 (6.3-8.2) g/dL Albumin 3.7 L (3.9-5) g/dL Albumin/Globulin Ratio 1.1 % - Radiology Data Radiology results: pending, report reviewed, image reviewed CHEST 1 VIEW 06/13/2021 10:17 AM INDICATION / CLINICAL INFORMATION: Shortness of breath. COMPARISON: None available. FINDINGS: SUPPORT DEVICES: None. HEART / MEDIASTINUM: No significant abnormality. LUNGS / PLEURA: No significant pulmonary or pleural abnormality. No pneumothorax. ADDITIONAL FINDINGS: No significant additional findings. IMPRESSION: 1. No acute findings. Signer Name: Rolando Fairchild MD Signed: 06/13/2021 10:23 AM Critical Care Time: Yes Critical care time in (mins) excluding proc time.: 45 Critical care attestation.: If time is entered above; I have spent that time in minutes in the direct care of this critically ill patient, excluding procedure time. ED Disposition Clinical Impression: DKA (diabetic ketoacidosis), Shortness of breath, Dehydration Disposition: 09 ADMITTED INPATIENT Is pt being admited?: Yes Does the pt Need Aspirin: No Condition: Critical Instructions: Diabetic Ketoacidosis (ED) Referrals: PRIMARY CARE, [Primary Care Provider] - 3-5 Days
--- NOTE | 2021-06-13 11:28 | XRay Report ---
CHEST 1 VIEW 06/13/2021 10:17 AM INDICATION / CLINICAL INFORMATION: Shortness of breath. COMPARISON: None available. FINDINGS: SUPPORT DEVICES: None. HEART / MEDIASTINUM: No significant abnormality. LUNGS / PLEURA: No significant pulmonary or pleural abnormality. No pneumothorax. ADDITIONAL FINDINGS: No significant additional findings. IMPRESSION: 1. No acute findings. Signer Name: Rolando Fairchild MD Signed: 06/13/2021 11:23 AM Workstation Name: [id number]
[2021-06-13] MEDS ORDERED: METOCLOPRAMIDE 10 MG/2 ML INJ IV ONE (11:29)
[2021-06-13] MEDS: INSULIN REGULAR, HUMAN 100 UNITS in SODIUM CHLORIDE 0.9% 99 ML IV SCH (11:52)
[2021-06-13 12:17] LABS: Mean Corpuscular HGB Conc 31 % (32-34); Mean Corpuscular Volume 96 fl (84-94); Platelet Count 322 K/mm3 (140-440); Red Blood Count 5.32 M/mm3 (3.65-5.03); Red Cell Distribution Width 15.9 % (13.2-15.2)
[2021-06-13 12:24] LABS: Hemoglobin 15.7 gm/dl (11.8-15.2)
[2021-06-13 12:25] LABS: Hematocrit 51.1 % (35.5-45.6)
[2021-06-13 12:41] LABS: Alanine Aminotransferase 14 units/L (7-56); Albumin 3.7 g/dL (3.9-5); BUN/Creatinine Ratio 13; Blood Urea Nitrogen 17 mg/dL (9-20); Calcium 9.3 mg/dL (8.4-10.2); Hemolysis Index 32
[2021-06-13] MEDS ORDERED: INSULIN REGULAR, HUMAN 100 UNITS/1 ML IV ONE (12:47)
[2021-06-13 13:17] LABS: Band Neutrophils # (Manual) 2.1 K/mm3; Basophils % (Manual) 0 % (0.0-1.8); Eosinophils % (Manual) 0 % (0.0-4.3); Myelocytes # (Manual) 0.2 K/mm3; Total Cells Counted 100
[2021-06-13 13:18] LABS: Platelet Clumps Few
[2021-06-13 13:19] LABS: Platelet Estimate Consistent w Auto
[2021-06-13] MEDS ORDERED: SODIUM CHLORIDE 0.9% 1000 ML 3,000 ML IV ONE (14:03)
--- NOTE | 2021-06-13 14:05 | History and Physical Report ---
History of Present Illness Chief complaint: I feel sick History of present illness: 25 YO Male with DM, Medication Noncompliance presents to the ED for evaluation. Patient reports "I feel sick". Patient states that he has experienced increased thirst, generalized weakness, urinary frequency over the past 4 days with persistent and worsening symptoms over the same timeframe. EMS was notified and upon arrival the patient was found to be in distress and subsequently transported to [facility] for further care and evaluation of the aforementioned symptoms. The patient was seen and evaluated in the emergency department. All lab and imaging studies reviewed. Patient found to have confusion complicated by cognitive slowing secondary to diabetic ketoacidosis, volume depletion, metabolic acidosis, as well as metabolic encephalopathy. Patient admitted to ICU and initiated on DKA protocol. Critical care team consulted in ED. Patient denies fever, chills, chest pain, palpitation, productive cough, skin rash, recent contact, known exposure to COVID-19. Prior admission on 04/22/2021 reviewed. No medication listed at time of admission for reconciliation. Advanced care planning conducted in ED. Past History Past Medical History: diabetes Past Surgical History: No surgical history, Other (Reviewed) Social history: single. denies: smoking, alcohol abuse, prescription drug abuse Family history: diabetes, hypertension Medications and Allergies Allergies Allergy/AdvReac Type Severity Reaction Status Date / Time No Known Allergies Allergy Verified 06/13/21 11:08 Home Medications Medication Instructions Recorded Confirmed Last Taken Type Insulin NPH/Regular [NovoLIN 70/30] 10 unit SUB-Q BIDDIAB #2 vial 04/25/21 Unknown Rx Active Meds: Active Medications Dextrose (Dextrose 50% In Water (25gm) 50 Ml Syringe) 0 ml IV Q30MIN PRN; Protocol PRN Reason: Hypoglycemia Insulin Human Regular 100 (units/ Sodium Chloride) 100 mls @ 1 mls/hr IV TITR HAMIDA; Protocol Last Titration: 06/13/21 13:18 Dose: 11 units/hr, 11 mls/hr Potassium Chloride/Dextrose/Sod Cl (D5w/0.45% Nacl/Kcl 20 Meq) 20 meq in 1,000 mls @ 125 mls/hr IV DIRECT HAMIDA Sodium Chloride (Nacl 0.9% 1000 Ml) 3,000 mls @ 999 mls/hr IV BOLUS ONE Stop: 06/13/21 17:03 Review of Systems Constitutional: no weight loss, no weight gain, no fever, no chills Ears, nose, mouth and throat: no ear pain, no tinnitis, no nose pain, no nasal congestion Cardiovascular: no orthopnea, no palpitations, no edema, no lightheadedness Respiratory: no cough, no excessive sputum, no hemoptysis, no dyspnea on ex ertion Gastrointestinal: no abdominal pain, no nausea, no diarrhea, no change in bowel habits Genitourinary Male: no hematuria, no flank pain, no discharge, no urinary hesitancy, no nocturia Rectal: no pain, no bleeding Musculoskeletal: no neck pain, no shooting arm pain, no low back pain, no shooti ng leg pain Integumentary: no rash, no redness, no sores Neurological: no head injury, no weakness Psychiatric: no anxiety, no sleep disturbances, no hypersomnia, no change in appetite Endocrine: polyphagia, excessive thirst, polydipsia, polyuria Hematologic/Lymphatic: no easy bruising, no easy bleeding, no lymphadenopathy Allergic/Immunologic: no allergic rhinitis, no wheezing, no persistent infections, no anaphylaxis Exam - Constitutional Vitals: Temp Pulse Resp BP Pulse Ox 97.1 F L 124 H 16 126/74 100 06/13/21 10:28 06/13/21 13:04 06/13/21 13:04 06/13/21 13:04 06/13/21 13:04 General appearance: Present: mild distress - EENT Eyes: Present: PERRL ENT: hearing intact, clear oral mucosa - Neck Neck: Present: supple, normal ROM - Respiratory Respiratory effort: normal Respiratory: bilateral: CTA - Cardiovascular Heart Sounds: Present: S1 & S2. Absent: rub, click - Extremities Extremities: pulses symmetrical, No edema Peripheral Pulses: within normal limits - Abdominal General gastrointestinal: Present: soft, non-tender, non-distended, normal bowel sounds Male genitourinary: Present: normal - Integumentary Integumentary: Present: clear, warm, dry - Musculoskeletal Musculoskeletal: gait normal, strength equal bilaterally - Psychiatric Psychiatric: no intact judgment & insight, no memory intact, other (Confused) - Neurologic Neurologic: CNII-XII intact, moves all extremities Results - Labs CBC & Chem 7: 06/13/21 11:38 06/13/21 14:36 Labs: Abnormal lab results 06/13/21 06/13/21 06/13/21 Range/Units 11:38 11:38 11:38 WBC (4.5-11.0) K/mm3 RBC (3.65-5.03) M/mm3 Hgb (11.8-15.2) gm/dl Hct (35.5-45.6) % MCV (84-94) fl MCHC (32-34) % RDW (13.2-15.2) % Seg Neuts % (Manual) (40.0-70.0) % Lymphocytes % (Manual) (13.4-35.0) % Seg Neutrophils # Man (1.8-7.7) K/mm3 VBG pH 6.968 L* (7.320-7.420) Sodium (137-145) mmol/L Chloride (98-107) mmol/L Carbon Dioxide (22-30) mmol/L Glucose (75-100) mg/dL Phosphorus 6.00 H (2.5-4.5) mg/dL Magnesium 2.40 H 2.50 H (1.7-2.3) mg/dL Albumin (3.9-5) g/dL 06/13/21 06/13/21 Range/Units 11:38 11:38 WBC 21.1 H (4.5-11.0) K/mm3 RBC 5.32 H (3.65-5.03) M/mm3 Hgb 15.7 H (11.8-15.2) gm/dl Hct 51.1 H (35.5-45.6) % MCV 96 H (84-94) fl MCHC 31 L (32-34) % RDW 15.9 H (13.2-15.2) % Seg Neuts % (Manual) 77.0 H (40.0-70.0) % Lymphocytes % (Manual) 8.0 L (13.4-35.0) % Seg Neutrophils # Man 16.2 H (1.8-7.7) K/mm3 VBG pH (7.320-7.420) Sodium 133 L (137-145) mmol/L Chloride 97.8 L (98-107) mmol/L Carbon Dioxide 4 L* (22-30) mmol/L Glucose 521 H* (75-100) mg/dL Phosphorus (2.5-4.5) mg/dL Magnesium (1.7-2.3) mg/dL Albumin 3.7 L (3.9-5) g/dL Assessment and Plan - Patient Problems (1) DKA (diabetic ketoacidosis) Current Visit: Yes Status: Acute Plan to address problem: DKA protocol: Insulin drip, IV fluid resuscitation therapy, serial lactic acid level, monitor anion gap, potassium repletion as per protocol. The high probability of a clinically significant, sudden or life threatening deterioration of the [endocrine, neuro, renal] system(s) required my full and direct attention, intervention and personal management. The aggregate critical care time was [65] minutes. This time is in addition to time spent performing reported procedures but includes the following: [x] Data Review and interpretation [x] Patient assessment and monitoring of vital signs [x] Documentation [x] Medication orders and management (2) Volume depletion Current Visit: Yes Status: Acute Plan to address problem: IV fluid resuscitation therapy, monitor urine output every shift. Monitor fluid balance. (3) Acidosis Current Visit: No Status: Acute Plan to address problem: IV fluid resuscitation therapy, BMP, repeat BMP in a.m. (4) Acute metabolic encephalopathy Current Visit: No Status: Acute Plan to address problem: IV fluid resuscitation therapy, supportive care. Treat DKA (5) DVT prophylaxis Current Visit: No Status: Acute (6) Advance care planning Current Visit: No Status: Acute Plan to address problem: Disease education conducted, care plan discussed, diagnoses discussed, prognosis discussed, patient is full code. Patient counseled regarding medication noncompliance. Patient counseled regarding carbohydrate counting and insulin implementation regimen. Patient acknowledges understanding instructions, +30 minutes.
[2021-06-13 14:06] LABS: Bilirubin,Urine NEG (Negative); Blood,Urine SM (Negative); Color,Urine Straw (Yellow); Urobilinogen,Urine < 2.0 mg/dL (<2.0)
[2021-06-13 14:11] LABS: RBC,Urine < 1.0 /HPF (0.0-6.0); WBC,Urine < 1.0 /HPF (0.0-6.0)
[2021-06-13 14:19] LABS: BUN/Creatinine Ratio 15; Blood Urea Nitrogen 17 mg/dL (9-20); Calcium 7.2 mg/dL (8.4-10.2); Hemolysis Index 11
[2021-06-13] MEDS ORDERED: ALBUTEROL 2.5 MG/3 ML NEBU IH PRN (14:21)
[2021-06-13] MEDS ORDERED: HYDROmorphone 1 MG/1 ML INJ IV PRN (14:21)
[2021-06-13] MEDS ORDERED: ACETAMINOPHEN 325 MG TAB PO PRN (14:21)
[2021-06-13] MEDS ORDERED: oxyCODONE /ACETAMINOPHEN 5-325MG TAB PO PRN (14:21)
[2021-06-13 15:45] LABS: BUN/Creatinine Ratio 15; Blood Urea Nitrogen 17 mg/dL (9-20); Hemolysis Index 154
[2021-06-13] MEDS: D5W/0.45% NACL/KCL 20 MEQ 20 MEQ/1,000 ML BAG IV SCH (18:06)
[2021-06-13 19:54] LABS: BUN/Creatinine Ratio 15; Blood Urea Nitrogen 15 mg/dL (9-20); Calcium 8.5 mg/dL (8.4-10.2); Hemolysis Index 17
[2021-06-13 19:58] LABS: BUN/Creatinine Ratio 15; Blood Urea Nitrogen 15 mg/dL (9-20); Calcium 8.5 mg/dL (8.4-10.2); Hemolysis Index 20
[2021-06-14] MEDS: INSULIN REGULAR, HUMAN 100 UNITS in SODIUM CHLORIDE 0.9% 99 ML IV SCH (02:16)
[2021-06-14] MEDS: D5W/0.45% NACL/KCL 20 MEQ 20 MEQ/1,000 ML BAG IV SCH (04:09)
[2021-06-14 05:09] LABS: BUN/Creatinine Ratio 14; Blood Urea Nitrogen 13 mg/dL (9-20); Calcium 8.9 mg/dL (8.4-10.2); Hemolysis Index 16
[2021-06-14] MEDS ORDERED: SODIUM CHLORIDE 0.9% 1000 ML 1,000 ML IV ONE (07:49)
[2021-06-14] MEDS ORDERED: FAMOTIDINE 20 MG TAB PO SCH (10:00)
--- NOTE | 2021-06-14 10:36 | Progress Note ---
Hospitalist Physical - Constitutional Vitals: Temp Pulse Resp BP Pulse Ox 98 F 100 H 16 112/69 95 06/14/21 07:40 06/14/21 04:00 06/14/21 04:00 06/13/21 19:00 06/14/21 04:00 General appearance: Present: mild distress Results - Labs CBC & Chem 7: 06/13/21 11:38 06/14/21 04:00 Labs: Laboratory Last Values WBC 21.1 K/mm3 (4.5-11.0) H 06/13/21 11:38 RBC 5.32 M/mm3 (3.65-5.03) H 06/13/21 11:38 Hgb 15.7 gm/dl (11.8-15.2) H 06/13/21 11:38 Hct 51.1 % (35.5-45.6) H 06/13/21 11:38 MCV 96 fl (84-94) H 06/13/21 11:38 MCH 30 pg (28-32) 06/13/21 11:38 MCHC 31 % (32-34) L 06/13/21 11:38 RDW 15.9 % (13.2-15.2) H 06/13/21 11:38 Plt Count 322 K/mm3 (140-440) 06/13/21 11:38 Lymph % (Auto) Paper Wrapping Machine Operator 06/13/21 11:38 [place] % (Auto) Paper Wrapping Machine Operator 06/13/21 11:38 Eos % (Auto) Paper Wrapping Machine Operator 06/13/21 11:38 Baso % (Auto) Paper Wrapping Machine Operator 06/13/21 11:38 Lymph # (Auto) Paper Wrapping Machine Operator 06/13/21 11:38 [place] # (Auto) Paper Wrapping Machine Operator 06/13/21 11:38 Eos # (Auto) Paper Wrapping Machine Operator 06/13/21 11:38 Baso # (Auto) Paper Wrapping Machine Operator 06/13/21 11:38 Add Manual Diff Complete 06/13/21 11:38 Total Counted 100 06/13/21 11:38 Seg Neutrophils % Paper Wrapping Machine Operator 06/13/21 11:38 Seg Neuts % (Manual) 77.0 % (40.0-70.0) H 06/13/21 11:38 Band Neutrophils % 10.0 % 06/13/21 11:38 Lymphocytes % (Manual) 8.0 % (13.4-35.0) L 06/13/21 11:38 Reactive Lymphs % (Man) 0 % 06/13/21 11:38 Monocytes % (Manual) 4.0 % (0.0-7.3) 06/13/21 11:38 Eosinophils % (Manual) 0 % (0.0-4.3) 06/13/21 11:38 Basophils % (Manual) 0 % (0.0-1.8) 06/13/21 11:38 Metamyelocytes % 0 % 06/13/21 11:38 Myelocytes % 1.0 % 06/13/21 11:38 Promyelocytes % 0 % 06/13/21 11:38 Blast Cells % 0 % 06/13/21 11:38 Nucleated RBC % Not Reportable 06/13/21 11:38 Seg Neutrophils # Paper Wrapping Machine Operator 06/13/21 11:38 Seg Neutrophils # Man 16.2 K/mm3 (1.8-7.7) H 06/13/21 11:38 Band Neutrophils # 2.1 K/mm3 06/13/21 11:38 Lymphocytes # (Manual) 1.7 K/mm3 (1.2-5.4) 06/13/21 11:38 Abs React Lymphs (Man) 0.0 K/mm3 06/13/21 11:38 Monocytes # (Manual) 0.8 K/mm3 (0.0-0.8) 06/13/21 11:38 Eosinophils # (Manual) 0.0 K/mm3 (0.0-0.4) 06/13/21 11:38 Basophils # (Manual) 0.0 K/mm3 (0.0-0.1) 06/13/21 11:38 Metamyelocytes # 0.0 K/mm3 06/13/21 11:38 Myelocytes # 0.2 K/mm3 06/13/21 11:38 Promyelocytes # 0.0 K/mm3 06/13/21 11:38 Blast Cells # 0.0 K/mm3 06/13/21 11:38 WBC Morphology Not Reportable 06/13/21 11:38 Hypersegmented Neuts Not Reportable 06/13/21 11:38 Hyposegmented Neuts Not Reportable 06/13/21 11:38 Hypogranular Neuts Not Reportable 06/13/21 11:38 Smudge Cells Not Reportable 06/13/21 11:38 Toxic Granulation Not Reportable 06/13/21 11:38 Toxic Vacuolation Not Reportable 06/13/21 11:38 Dohle Bodies Not Reportable 06/13/21 11:38 Pelger-Huet Anomaly Not Reportable 06/13/21 11:38 [place] Rods Not Reportable 06/13/21 11:38 Platelet Estimate Consistent w auto 06/13/21 11:38 Clumped Platelets Few 06/13/21 11:38 Plt Clumps, EDTA Not Reportable 06/13/21 11:38 Large Platelets Not Reportable 06/13/21 11:38 Giant Platelets Not Reportable 06/13/21 11:38 Platelet Satelliting Not Reportable 06/13/21 11:38 Plt Morphology Comment Not Reportable 06/13/21 11:38 RBC Morphology Not Reportable 06/13/21 11:38 Dimorphic RBCs Not Reportable 06/13/21 11:38 Polychromasia Not Reportable 06/13/21 11:38 Hypochromasia Not Reportable 06/13/21 11:38 Poikilocytosis Not Reportable 06/13/21 11:38 Anisocytosis Not Reportable 06/13/21 11:38 Microcytosis Not Reportable 06/13/21 11:38 Macrocytosis Not Reportable 06/13/21 11:38 Spherocytes Not Reportable 06/13/21 11:38 Pappenheimer Bodies Not Reportable 06/13/21 11:38 Sickle Cells Not Reportable 06/13/21 11:38 Target Cells Not Reportable 06/13/21 11:38 Tear Drop Cells Not Reportable 06/13/21 11:38 Ovalocytes Not Reportable 06/13/21 11:38 Helmet Cells Not Reportable 06/13/21 11:38 [place]-Atco Bodies Not Reportable 06/13/21 11:38 [place] Rings Not Reportable 06/13/21 11:38 [place] Cells Not Reportable 06/13/21 11:38 Bite Cells Not Reportable 06/13/21 11:38 Crenated Cell Not Reportable 06/13/21 11:38 Elliptocytes Not Reportable 06/13/21 11:38 Acanthocytes (Spur) Not Reportable 06/13/21 11:38 Rouleaux Not Reportable 06/13/21 11:38 Hemoglobin C Crystals Not Reportable 06/13/21 11:38 Schistocytes Not Reportable 06/13/21 11:38 Malaria parasites Not Reportable 06/13/21 11:38 Feroz Bodies Not Reportable 06/13/21 11:38 Hem Pathologist Commnt No 06/13/21 11:38 VBG pH 6.968 (7.320-7.420) L* 06/13/21 11:38 Sodium 132 mmol/L (137-145) L 06/14/21 04:00 Potassium 3.7 mmol/L (3.6-5.0) 06/14/21 04:00 Chloride 107.9 mmol/L (98-107) H 06/14/21 04:00 Carbon Dioxide 13 mmol/L (22-30) L 06/14/21 04:00 Anion Gap 15 mmol/L 06/14/21 04:00 BUN 13 mg/dL (9-20) 06/14/21 04:00 Creatinine 0.9 mg/dL (0.8-1.3) 06/14/21 04:00 Estimated GFR > 60 ml/min 06/14/21 04:00 BUN/Creatinine Ratio 14 % 06/14/21 04:00 Glucose 87 mg/dL (75-100) 06/14/21 04:00 POC Glucose 236 mg/dL (70-105) H 06/14/21 07:13 Calcium 8.9 mg/dL (8.4-10.2) 06/14/21 04:00 Phosphorus 6.00 mg/dL (2.5-4.5) H 06/13/21 11:38 Magnesium 2.40 mg/dL (1.7-2.3) H 06/13/21 11:38 Magnesium 2.50 mg/dL (1.7-2.3) H 06/13/21 11:38 Total Bilirubin 0.40 mg/dL (0.1-1.2) 06/13/21 11:38 AST 23 units/L (5-40) 06/13/21 11:38 ALT 14 units/L (7-56) 06/13/21 11:38 Alkaline Phosphatase 77 units/L (35-129) 06/13/21 11:38 Total Creatine Kinase 83 units/L (55-170) 06/13/21 11:38 Total Protein 7.0 g/dL (6.3-8.2) 06/13/21 11:38 Albumin 3.7 g/dL (3.9-5) L 06/13/21 11:38 Albumin/Globulin Ratio 1.1 % 06/13/21 11:38 TSH 0.838 mlU/mL (0.270-4.200) 06/13/21 11:38 Urine Color Straw (Yellow) 06/13/21 13:27 Urine Turbidity Clear (Clear) 06/13/21 13:27 Urine pH 5.0 (5.0-7.0) 06/13/21 13:27 Ur Specific [place] 1.022 (1.003-1.030) 06/13/21 13:27 Urine Protein 30 mg/dl mg/dL (Negative) 06/13/21 13:27 Urine Glucose (UA) >=500 mg/dL (Negative) 06/13/21 13:27 Urine Ketones 80 mg/dL (Negative) 06/13/21 13:27 Urine Blood Sm (Negative) 06/13/21 13:27 Urine Nitrite Neg (Negative) 06/13/21 13:27 Urine Bilirubin Neg (Negative) 06/13/21 13:27 Urine Urobilinogen < 2.0 mg/dL (<2.0) 06/13/21 13:27 Ur Leukocyte Esterase Neg (Negative) 06/13/21 13:27 Urine WBC (Auto) < 1.0 /HPF (0.0-6.0) 06/13/21 13:27 Urine RBC (Auto) < 1.0 /HPF (0.0-6.0) 06/13/21 13:27 Active Medications - Current Medications Current Medications: Generic Name Dose Route Start Last Admin Trade Name Freq PRN Reason Stop Dose Admin Acetaminophen 650 mg 06/13/21 14:21 Acetaminophen 325 Mg Tab PO Q6H PRN Pain MILD(1-3)/Fever >100.5/IVAN Albuterol 2.5 mg 06/13/21 14:21 Albuterol 2.5 Mg/3 Ml Nebu IH Q3HRT PRN Shortness Of Breath Dextrose 0 ml 06/13/21 11:00 Dextrose 50% In Water (25gm) 50 Ml Syringe IV Q30MIN PRN Hypoglycemia Protocol Famotidine 20 mg 06/14/21 10:00 06/14/21 09:52 Famotidine 20 Mg Tab PO 20 mg QDAY HAMIDA Administration Hydromorphone HCl 0.5 mg 06/13/21 14:21 Hydromorphone 1 Mg/1 Ml Inj IV Q23H PRN Pain , Severe (7-10) Insulin Human Regular 100 100 mls @ 1 mls/hr 06/13/21 11:00 06/14/21 09:51 units/ Sodium Chloride IV 2 units/hr TITR HAMIDA 2 mls/hr Titration Protocol 1 UNITS/HR Potassium Chloride/Dextrose/Sod Cl 20 meq in 1,000 mls @ 125 mls/hr 06/13/21 11:00 06/14/21 04:09 D5w/0.45% Nacl/Kcl 20 Meq IV 125 mls/hr DIRECT HAMIDA Administration Oxycodone/Acetaminophen 1 tab 06/13/21 14:21 Oxycodone /Acetaminophen 5-325mg Tab PO Q16H PRN Pain, Moderate (4-6) Sodium Chloride 10 ml 06/13/21 22:00 06/14/21 09:52 Sodium Chloride 0.9% 10 Ml Flush Syringe IV 06/20/21 21:59 10 ml BID HAMIDA Administration Sodium Chloride 10 ml 06/13/21 14:21 Sodium Chloride 0.9% 10 Ml Flush Syringe IV PRN PRN LINE FLUSH
[2021-06-14] MEDS ORDERED: DEXTROSE 50% IN WATER (25GM) 50 ML SYRINGE IV PRN (11:22)
[2021-06-14 11:47] LABS: Hematocrit 33.9 % (35.5-45.6); Hemoglobin 11.6 gm/dl (11.8-15.2); Mean Corpuscular HGB Conc 34 % (32-34); Mean Corpuscular Volume 90 fl (84-94); Platelet Count 157 K/mm3 (140-440); Red Blood Count 3.78 M/mm3 (3.65-5.03); Red Cell Distribution Width 14.9 % (13.2-15.2)
[2021-06-14] MEDS ORDERED: INSULIN GLARGINE 100 UNITS/ML SUB-Q ONE (12:00)
[2021-06-14] MEDS: INSULIN LISPRO 100 UNIT/ML SUB-Q SCH ×2 (12:00→15:59)
--- NOTE | 2021-06-14 12:01 | Event Note ---
Date: 06/14/21 admitted for DKA off IV Insulin, AG has closed and clinically stable - please re-consult as needed - transfer to medical floor
[2021-06-14 12:12] LABS: BUN/Creatinine Ratio 14; Blood Urea Nitrogen 11 mg/dL (9-20); Calcium 8.2 mg/dL (8.4-10.2); Hemolysis Index 33
[2021-06-14] MEDS ORDERED: SODIUM PHOSPHATE 30 MMOL in SODIUM CHLORIDE 0.9% 500 ML 500 ML IV ONE (13:00)
[2021-06-14] MEDS ORDERED: POTASSIUM CHLORIDE ER 20 MEQ TAB PO ONE (13:00)
--- NOTE | 2021-06-14 15:10 | Discharge Summary ---
Providers - Providers Date of Admission: 06/13/21 14:21 Date of discharge: 06/14/21 Attending physician: IFRAH LANDRY MD 06/13/21 11:00 Consult to Physician [CONS] Routine Comment: Consulting Provider: MARCUS GILES Physician Instructions: Reason For Exam: dka Primary care physician: [employer]PLICATOR Hospitalization Reason for admission: DKA Condition: Stable Hospital course: 25 YO Male with DM, Medication Noncompliance presents to the ED for evaluation. Patient reports "I feel sick". Patient states that he has experienced increased thirst, generalized weakness, urinary frequency over the past 4 days with persistent and worsening symptoms over the same timeframe. EMS was notified and upon arrival the patient was found to be in distress and subsequently transported to [facility] for further care and evaluation of the aforementioned symptoms. The patient was seen and evaluated in the emergency d epartment. All lab and imaging studies reviewed. Patient found to have confusion complicated by cognitive slowing secondary to diabetic ketoacidosis, volume depletion, metabolic acidosis, as well as metabolic encephalopathy. Patient admitted to ICU and initiated on DKA protocol. Critical care team consulted in ED. Patient denies fever, chills, chest pain, palpitation, productive cough, skin rash, recent contact, known exposure to COVID-19. Prior admission on 04/22/2021 reviewed. No medication listed at time of admission for reconciliation. Advanced care planning conducted in ED. Hospital Course to Date: 06/14: Patient BG and anion gap improved this am. Patient transitioned to subQ insulin. patient is tolerating PO intake and BG remains stable and electrolytes repleted. Thorough education provided disease process, plan of care, and the importance of medications compliance. Patient voiced that he did not ran out of insulin, he just forgets to take his night levemir. Patient acknowledges understanding instructions. All questions and concerns were voiced at this time. Patient is stable for discharge back home. (1) DKA (diabetic ketoacidosis) Current Visit: Yes Status: Acute Plan to address problem: DKA protocol: Insulin drip, IV fluid resuscitation therapy, serial lactic acid level, monitor anion gap, potassium repletion as per protocol. (2) Volume depletion Current Visit: Yes Status: Acute Plan to address problem: IV fluid resuscitation therapy, monitor urine output every shift. Monitor fluid balance. (3) Acidosis Current Visit: No Status: Acute Plan to address problem: IV fluid resuscitation therapy, BMP, repeat BMP in a.m. (4) Acute metabolic encephalopathy Current Visit: No Status: Acute Plan to address problem: IV fluid resuscitation therapy, supportive care. Treat DKA (5) GI/DVT prophylaxis Current Visit: No Status: Acute PPI-Pepcid, SCDs to bilateral lower extremities while in bed (6) Advance care planning Current Visit: No Status: Acute Plan to address problem: Disease education conducted, care plan discussed, diagnoses discussed, prognosis discussed. Patient counseled regarding medication noncompliance. Patient counseled regarding carbohydrate counting and insulin implementation regimen. Patient acknowledges understanding instructions. All questions and concerns were voiced at this time. Disposition: 01 HOME / SELF CARE / HOMELESS Final Discharge Diagnosis (Prints w/discharge instructions): DKA Time spent for discharge: 35 Core Measure Documentation - Palliative Care Palliative Care/ Comfort Measures: Not Applicable - Core Measures Any of the following diagnoses?: none Exam - Constitutional Vitals: Temp Pulse Resp BP Pulse Ox 98 F 68 13 97/70 100 06/14/21 07:40 06/14/21 11:00 06/14/21 11:00 06/14/21 11:00 06/14/21 11:00 General appearance: Present: no acute distress, cachectic - EENT Eyes: Present: PERRL, EOM intact ENT: hearing intact, clear oral mucosa - Neck Neck: Present: normal ROM - Respiratory Respiratory effort: normal Respiratory: bilateral: CTA - Cardiovascular Rhythm: regular Heart Sounds: Present: S1 & S2 - Extremities Extremities: no ischemia, pulses intact, pulses symmetrical Peripheral Pulses: within normal limits - Abdominal General gastrointestinal: Present: soft, non-distended, normal bowel sounds Male genitourinary: Present: deferred - Rectal Rectal Exam: deferred - Integumentary Integumentary: Present: clear, warm, dry - Musculoskeletal Musculoskeletal: strength equal bilaterally - Psychiatric Psychiatric: appropriate mood/affect, cooperative - Neurologic Neurologic: CNII-XII intact, moves all extremities - Allied Health Allied health notes reviewed: nursing Plan Activity: no restrictions Diet: diabetic, low carbohydrate Wound: open to air Special Instructions: record blood sugar diary, other (Medications compliance) Care Plan Goals: As we discussed in very important to stay compliant with your insulin regimen as prescribed - Check you blood sugar before each meals and at bedtime - And follow up or reschedule your appointment with your primary care provider within 7 to 10 days - It is important to eat a healthy diet and regular meals - Reduce stress Follow up with: PRIMARY CARE, [Primary Care Provider] - 3-5 Days Prescriptions: Insulin Detemir [Levemir VIAL] 15 unit SQ QHS 30 Days #3 vial Lispro Insulin [HumaLOG] 0 unit SUB-Q ACHS 30 Days #3 vial
[2021-06-14 16:30] VITALS: BP 113/75
--- NOTE | 2021-06-15 08:48 | Electrocardiograph Report ---
[facility] Test Date: 2021-06-13 Test Time: 11:22:32 Pat Name: LAKISHA PUGH Department: Room: A252 1 Gender: M [facility]: NEELAM : 1995 Requested By: HEATHER RUIZ Order Number: [id number] Reading MD: Lazaro Abernathy Measurements Intervals [place] Rate: 105 P: 86 MT: 131 QRS: 81 QRSD: 83 T: 39 QT: 344 QTc: 455 Interpretive Statements Sinus tachycardia Right atrial enlargement NSSTTW'S vS PREVIOUS- SUBTLE CHANGES IN STTW'S Electronically Signed On 06-15-2021 8:48:10 EDT by Lazaro Abernathy
== END 2021-06-14 17:15 | disposition home or self-care (01) | DRG 637 ==
LOC: ED 10:16 → CC1 14:21
PROVIDERS: ADMIT Internal Medicine; ATTEND Internal Medicine
DX: E11.10 Type 2 diabetes mellitus with ketoacidosis without coma (principal); G93.41 Metabolic encephalopathy; E86.9 Volume depletion, unspecified; E86.0 Dehydration; Z83.3 Family history of diabetes mellitus; Z82.49 Family history of ischemic heart disease and other diseases of the circulatory system
CPT/HCPCS: 36415; 71045; 80048; 80053; 81001; 82550; 82805; 82962; 83735; 84100; 84443; 85007; 85025; 85027; 93005; G0378; J3480; J3490; Q0162; Q9967; J1815; J2765; J7030; J7040